=== PATIENT | female | born 1955 | race Caucasian/White ===

== ENCOUNTER 2017-11-09 13:21 | Emergency (ER) | payer MEDICAID ==
[2017-11-09] MEDS ORDERED: Sodium Chloride 0.9% 1,000 ML IV ONE (13:29)
[2017-11-09] MEDS ORDERED: Sodium Chloride 0.9% 10 ML Syringe FLUSH PRN (13:29)
[2017-11-09] MEDS ORDERED: Sodium Chloride 0.9% 2.5 ML Syringe FLUSH PRN (13:29)
--- NOTE | 2017-11-09 13:29 | EDM.PDOC ---
ED HPI GENERAL MEDICAL PROBLEM - General Chief Complaint: Syncope Stated Complaint: DIZZY Time Seen by Provider: 11/09/17 13:23 Source of Information: Reports: Patient History Limitations: Reports: No Limitations - History of Present Illness INITIAL COMMENTS - FREE TEXT/NARRATIVE: History of present illness: []Patient had a first episode of dizziness this morning. Patient tried to stand up and stated that she could not because everything was spinning and if she had been standing she would have fell down. Patient denies any recent illnesses, nausea, vomiting, headache, blurry vision, syncope. She had some numbness and tingling in 2 fingertips on her right hand. Review of systems: As per history of present illness and below otherwise all systems reviewed and negative. Past medical history: As per history of present illness and as reviewed below otherwise noncontributory. Surgical history: As per history of present illness and as reviewed below otherwise noncontributory. Social history: No reported history of drug or alcohol abuse. Family history: As per history of present illness and as reviewed below otherwise noncontributory. Physical exam: General: Well developed, well nourished in NAD HEENT: Atraumatic, normocephalic, pupils reactive, negative for conjunctival pallor or scleral icterus, mucous membranes moist, throat clear, neck supple, nontender, trachea midline. Lungs: Clear to auscultation, breath sounds equal bilaterally, chest nontender. Heart: S1S2, regular, negative for clicks, rubs, or JVD. Abdomen: Soft, nondistended, nontender. Negative for masses or hepatosplenomegaly. Negative for costovertebral tenderness. Pelvis: Stable nontender. Genitourinary: Deferred. Rectal: Deferred. Extremities: Atraumatic, negative for cords or calf pain. Neurovascular unremarkable. Neuro: Awake, alert, oriented. Cranial nerves II through XII unremarkable. Cerebellum unremarkable. Motor and sensory unremarkable throughout. Exam nonfocal. Diagnostics: []Labs all negative Therapeutics: []Dehydration and Meclizine with alleviation of symptoms Impression: []Benign positional vertigo Plan: []Meclizine every 8 hours as needed increase fluids follow-up with PMD return if symptoms worsen or change Definitive disposition and diagnosis as appropriate pending reevaluation and review of above. - Related Data Allergies Allergy/AdvReac Type Severity Reaction Status Date / Time No Known Allergies Allergy Verified 04/23/16 11:19 Home Meds: Home Meds DULoxetine HCl [Cymbalta] 1 tab PO DAILY 04/23/16 [History] Gabapentin [Neurontin] 1 tab PO BID 04/23/16 [History] amLODIPine [Norvasc] 1 tab PO DAILY 04/23/16 [History] atorvaSTATin [Lipitor] 20 mg PO BEDTIME 04/23/16 [History] Lurasidone HCl [Latuda] 1 tab PO DAILY 11/09/17 [History] Meclizine [Antivert] 25 mg PO TID PRN #12 tab.chew 11/09/17 [Rx] buPROPion [Wellbutrin] 1 tab PO DAILY 11/09/17 [History] cloNIDine HCl [Catapres] 1 tab PO DAILY 11/09/17 [History] Past Medical History Cardiovascular History: Reports: High Cholesterol, Hypertension Musculoskeletal History: Reports: Arthritis Psychiatric History: Reports: Bipolar - Past Surgical History Female Surgical History: Reports: Tubal Ligation Social & Family History - Family History Family Medical History: Noncontributory - Tobacco Use Smoking Status *Q: Current Every Day Smoker Years of Tobacco use: 20 Packs/Tins Daily: 0.5 - Recreational Drug Use Recreational Drug Use: No ED ROS GENERAL - Review of Systems Review Of Systems: See Below (See history of present illness) ED EXAM, DIZZINESS - Physical Exam Exam: See Below (See history of present illness) Course - Vital Signs Last Recorded V/S: Last Vital Signs Temp 97.8 F 11/09/17 15:02 Pulse 79 11/09/17 15:02 Resp 24 H 11/09/17 15:02 BP 151/67 H 11/09/17 15:02 Pulse Ox 97 11/09/17 15:02 - Orders/Labs/Meds Orders: Active Orders 24 hr Category Date Time Status EKG Documentation Completion [RC] STAT Care 11/09/17 13:29 Active Sodium Chloride 0.9% [Saline Flush] Med 11/09/17 13:29 Active 10 ml FLUSH ASDIRECTED PRN Sodium Chloride 0.9% [Saline Flush] Med 11/09/17 13:29 Active 2.5 ml FLUSH ASDIRECTED PRN Saline Lock Insert [OM.PC] Stat Oth 11/09/17 13:29 Ordered Medication Orders Sodium Chloride (Saline Flush) 10 ml FLUSH ASDIRECTED PRN PRN Reason: Keep Vein Open Last Admin: 11/09/17 14:00 Dose: 10 ml Sodium Chloride (Saline Flush) 2.5 ml FLUSH ASDIRECTED PRN PRN Reason: Keep Vein Open Last Admin: 11/09/17 14:01 Dose: 2.5 ml Labs: Laboratory Tests 11/09/17 11/09/17 11/09/17 Range/Units 13:40 13:40 13:42 WBC 7.12 (4.0-11.0) K/uL RBC 5.45 (4.30-5.90) M/uL Hgb 16.3 H (12.0-16.0) g/dL Hct 48.4 H (36.0-46.0) % MCV 88.8 (80.0-98.0) fL MCH 29.9 (27.0-32.0) pg MCHC 33.7 (31.0-37.0) g/dL RDW Std Deviation 44.1 (28.0-62.0) fl RDW Coeff of Richard 14 (11.0-15.0) % Plt Count 232 (150-400) K/uL MPV 9.90 (7.40-12.00) fL Neut % (Auto) 57.5 (48.0-80.0) % Lymph % (Auto) 30.6 (16.0-40.0) % [place] % (Auto) 10.0 (0.0-15.0) % Eos % (Auto) 1.3 (0.0-7.0) % Baso % (Auto) 0.6 (0.0-1.5) % Neut # (Auto) 4.1 (1.4-5.7) K/uL Lymph # (Auto) 2.2 (0.6-2.4) K/uL [place] # (Auto) 0.7 (0.0-0.8) K/uL Eos # (Auto) 0.1 (0.0-0.7) K/uL Baso # (Auto) 0.0 (0.0-0.1) K/uL Nucleated RBC % 0.0 /100WBC Nucleated RBCs # 0 K/uL Sodium (136-146) mmol/L Potassium (3.5-5.1) mmol/L Chloride (98-110) mmol/L Carbon Dioxide (21-31) mmol/L BUN (6.0-23.0) mg/dL Creatinine (0.6-1.5) mg/dL Est Cr Clr Drug Dosing mL/min Estimated GFR (MDRD) ml/min Glucose (60-110) mg/dL Calcium (8.8-10.8) mg/dL Total Bilirubin (0.1-1.5) mg/dL AST (5-40) IU/L ALT (8-54) IU/L Alkaline Phosphatase (40-150) Troponin I (0.0-0.29) NG/ML Total Protein (6.0-8.0) g/dL Albumin (3.5-5.0) g/dL Globulin (2.0-3.5) g/dL Albumin/Globulin Ratio (1.3-2.8) Urine Color YELLOW Urine Appearance CLEAR Urine pH 6.0 (5.0-8.0) Ur Specific [place] 1.020 (1.001-1.035) Urine Protein NEGATIVE (NEGATIVE) mg/dL Urine Glucose (UA) NEGATIVE (NEGATIVE) mg/dL Urine Ketones NEGATIVE (NEGATIVE) mg/dL Urine Occult Blood MODERATE (NEGATIVE) Urine Nitrite NEGATIVE (NEGATIVE) Urine Bilirubin SMALL H (NEGATIVE) Urine Ictotest NEGATIVE Urine Urobilinogen 0.2 (<2.0) EU/dL Ur Leukocyte Esterase SMALL (NEGATIVE) Urine RBC 8-10 (0-2/HPF) Urine WBC 4-6 (0-5/HPF) Ur Epithelial Cells MODERATE (NONE-FEW) Urine Bacteria 1+ H (NEGATIVE) Urine Mucus LIGHT (NONE-MOD) Urine Yeast MODERATE Urine Opiates Screen NEGATIVE (NEGATIVE) Ur Oxycodone Screen NEGATIVE (NEGATIVE) Urine Methadone Screen NEGATIVE (NEGATIVE) Ur Barbiturates Screen NEGATIVE (NEGATIVE) Ur Phencyclidine Scrn NEGATIVE (NEGATIVE) Ur Amphetamine Screen NEGATIVE (NEGATIVE) U Methamphetamines Scrn NEGATIVE (NEGATIVE) U Benzodiazepines Scrn NEGATIVE (NEGATIVE) U Cocaine Metab Screen NEGATIVE (NEGATIVE) U Marijuana (THC) Screen NEGATIVE (NEGATIVE) Ethyl Alcohol mg/dL 11/09/17 Range/Units 13:42 WBC (4.0-11.0) K/uL RBC (4.30-5.90) M/uL Hgb (12.0-16.0) g/dL Hct (36.0-46.0) % MCV (80.0-98.0) fL MCH (27.0-32.0) pg MCHC (31.0-37.0) g/dL RDW Std Deviation (28.0-62.0) fl RDW Coeff of Richard (11.0-15.0) % Plt Count (150-400) K/uL MPV (7.40-12.00) fL Neut % (Auto) (48.0-80.0) % Lymph % (Auto) (16.0-40.0) % [place] % (Auto) (0.0-15.0) % Eos % (Auto) (0.0-7.0) % Baso % (Auto) (0.0-1.5) % Neut # (Auto) (1.4-5.7) K/uL Lymph # (Auto) (0.6-2.4) K/uL [place] # (Auto) (0.0-0.8) K/uL Eos # (Auto) (0.0-0.7) K/uL Baso # (Auto) (0.0-0.1) K/uL Nucleated RBC % /100WBC Nucleated RBCs # K/uL Sodium 140 (136-146) mmol/L Potassium 4.0 (3.5-5.1) mmol/L Chloride 106 (98-110) mmol/L Carbon Dioxide 25 (21-31) mmol/L BUN 12 (6.0-23.0) mg/dL Creatinine 0.9 (0.6-1.5) mg/dL Est Cr Clr Drug Dosing 70.34 mL/min Estimated GFR (MDRD) > 60.0 ml/min Glucose 126 H (60-110) mg/dL Calcium 9.1 (8.8-10.8) mg/dL Total Bilirubin 0.7 (0.1-1.5) mg/dL AST 16 (5-40) IU/L ALT 15 (8-54) IU/L Alkaline Phosphatase 90 (40-150) Troponin I < 0.10 (0.0-0.29) NG/ML Total Protein 7.5 (6.0-8.0) g/dL Albumin 4.0 (3.5-5.0) g/dL Globulin 3.5 (2.0-3.5) g/dL Albumin/Globulin Ratio 1.1 L (1.3-2.8) Urine Color Urine Appearance Urine pH (5.0-8.0) Ur Specific [place] (1.001-1.035) Urine Protein (NEGATIVE) mg/dL Urine Glucose (UA) (NEGATIVE) mg/dL Urine Ketones (NEGATIVE) mg/dL Urine Occult Blood (NEGATIVE) Urine Nitrite (NEGATIVE) Urine Bilirubin (NEGATIVE) Urine Ictotest Urine Urobilinogen (<2.0) EU/dL Ur Leukocyte Esterase (NEGATIVE) Urine RBC (0-2/HPF) Urine WBC (0-5/HPF) Ur Epithelial Cells (NONE-FEW) Urine Bacteria (NEGATIVE) Urine Mucus (NONE-MOD) Urine Yeast Urine Opiates Screen (NEGATIVE) Ur Oxycodone Screen (NEGATIVE) Urine Methadone Screen (NEGATIVE) Ur Barbiturates Screen (NEGATIVE) Ur Phencyclidine Scrn (NEGATIVE) Ur Amphetamine Screen (NEGATIVE) U Methamphetamines Scrn (NEGATIVE) U Benzodiazepines Scrn (NEGATIVE) U Cocaine Metab Screen (NEGATIVE) U Marijuana (THC) Screen (NEGATIVE) Ethyl Alcohol < 10.0 mg/dL Meds: Medications Generic Name Dose Route Start Last Admin Trade Name Freq PRN Reason Stop Dose Admin Sodium Chloride 10 ml 11/09/17 13:29 11/09/17 14:00 Saline Flush FLUSH 10 ml ASDIRECTED PRN Administration Keep Vein Open Sodium Chloride 2.5 ml 11/09/17 13:29 11/09/17 14:01 Saline Flush FLUSH 2.5 ml ASDIRECTED PRN Administration Keep Vein Open Discontinued Medications Generic Name Dose Route Start Last Admin Trade Name Freq PRN Reason Stop Dose Admin Sodium Chloride 1,000 mls @ 999 mls/hr 11/09/17 13:29 11/09/17 14:00 Normal Saline IV 11/09/17 14:29 999 mls/hr .Bolus ONE Administration Meclizine HCl 25 mg 11/09/17 13:30 11/09/17 13:59 Antivert PO 11/09/17 13:31 25 mg ONETIME ONE Administration Departure - Departure Time of Disposition: 14:44 Disposition: Home, Self-Care 01 Condition: Good Clinical Impression: Benign positional vertigo Qualifiers: Laterality: unspecified laterality Qualified Code(s): H81.10 - Benign paroxysmal vertigo, unspecified ear - Discharge Information Prescriptions: Meclizine [Antivert] 25 mg PO TID PRN #12 tab.chew PRN Reason: Dizziness Instructions: Vertigo, [id number] Referrals: PCP,None [Primary Care Provider] - Forms: ED Department Discharge Additional Instructions: The following information is given to patients seen in the emergency department who are being discharged to home. This information is to outline your options for follow-up care. We provide all patients seen in our emergency department with a follow-up referral. The need for follow-up, as well as the timing and circumstances, are variable depending upon the specifics of your emergency department visit. If you don't have a primary care physician on staff, we will provide you with a referral. We always advise you to contact your personal physician following an emergency department visit to inform them of the circumstance of the visit and for follow-up with them and/or the need for any referrals to a consulting specialist. The emergency department will also refer you to a specialist when appropriate. This referral assures that you have the opportunity for follow-up care with a specialist. All of these measure are taken in an effort to provide you with optimal care, which includes your follow-up. Under all circumstances we always encourage you to contact your private physician who remains a resource for coordinating your care. When calling for follow-up care, please make the office aware that this follow-up is from your recent emergency room visit. If for any reason you are refused follow-up, please contact the [facility] Emergency Department at and asked to speak to the emergency department charge nurse. Meclizine every 8 hours for dizziness increase fluids follow-up with PMD as needed [facility] [address] [place] [id number] - My Orders Last 24 Hours: My Active Orders 11/09/17 13:29 EKG Documentation Completion [RC] STAT Sodium Chloride 0.9% [Saline Flush] 10 ml FLUSH ASDIRECTED PRN Sodium Chloride 0.9% [Saline Flush] 2.5 ml FLUSH ASDIRECTED PRN Saline Lock Insert [OM.PC] Stat - Assessment/Plan Last 24 Hours: My Active Orders 11/09/17 13:29 EKG Documentation Completion [RC] STAT Sodium Chloride 0.9% [Saline Flush] 10 ml FLUSH ASDIRECTED PRN Sodium Chloride 0.9% [Saline Flush] 2.5 ml FLUSH ASDIRECTED PRN Saline Lock Insert [OM.PC] Stat
[2017-11-09] MEDS ORDERED: Meclizine 25 MG Tab PO ONE (13:30)
[2017-11-09 14:26] LABS: CHLORIDE,CL 106 mmol/L (98-110); SODIUM,NA 140 mmol/L (136-146)
[2017-11-09 15:02] VITALS: BP 151/67
== END 2017-11-09 15:07 | disposition home or self-care (01) ==
LOC: MW.ED 13:21
DX: H81.10 Benign paroxysmal vertigo, unspecified ear (principal); E78.00 Pure hypercholesterolemia, unspecified; I10 Essential (primary) hypertension; F17.210 Nicotine dependence, cigarettes, uncomplicated; Z79.899 Other long term (current) drug therapy
CPT/HCPCS: 36415; 80053; 80305; 81001; 84484; 85025; 93005; 96360; 99284; A9270; G0480; J7040; 99283

== ENCOUNTER 2017-12-18 16:19 | Inpatient (IN) | payer MEDICAID ==
[2017-12-18] MEDS ORDERED: Ondansetron 4 MG/2 ML SDV IVPUSH ONE (16:22)
[2017-12-18] MEDS ORDERED: Sodium Chloride 0.9% 1,000 ML IV ONE (16:22)
[2017-12-18] MEDS ORDERED: Ketorolac 30 MG/ML SDV IVPUSH ONE (16:22)
[2017-12-18] MEDS ORDERED: Famotidine 20 MG/2 ML SDV IVPUSH ONE (16:23)
--- NOTE | 2017-12-18 16:30 | EDM.PDOC ---
ED HPI GENERAL MEDICAL PROBLEM - General Stated Complaint: UNKNOWN Time Seen by Provider: 12/18/17 16:21 Source of Information: Reports: Patient History Limitations: Reports: No Limitations - History of Present Illness INITIAL COMMENTS - FREE TEXT/NARRATIVE: HISTORY AND PHYSICAL: History of present illness: Patient is a 61-year-old female who presents to the emergency room today with complaints of epigastric pain that has been going on for 2-3 days. She states that she has been nauseated but has had no vomiting or diarrhea/constipation. She denies any dysuria. Patient states that nothing improves the pain or makes it worse. Not affected by fluid or food consumption. Had a menstrual period in 4-5 years. History of hypertension, elevated cholesterol, bipolar disorder. Review of systems: As per history of present illness and below otherwise all systems reviewed and negative. Past medical history: As per history of present illness and as reviewed below otherwise noncontributory. Surgical history: As per history of present illness and as reviewed below otherwise noncontributory. Social history: No reported history of drug or alcohol abuse. Family history: As per history of present illness and as reviewed below otherwise noncontributory. Physical exam: Gen.: Well-developed and well-nourished 61-year-old -[place] female. Alert and oriented. Nontoxic appearing and in no acute distress. HEENT: Atraumatic, normocephalic, pupils reactive, negative for conjunctival pallor or scleral icterus, mucous membranes moist, throat clear, neck supple, nontender, trachea midline. Patient is grinding her teeth which she reports is a normal variant. Lungs: Clear to auscultation, breath sounds equal bilaterally, chest nontender. Heart: S1S2, regular rate and rhythm without overt murmur Abdomen: Soft, nondistended, left upper quadrant and right upper quadrant tenderness with deep palpation. Negative for masses or hepatosplenomegaly. Negative for costovertebral tenderness. Pelvis: Stable nontender. Genitourinary: Deferred. Rectal: Deferred. Extremities: Atraumatic, moves all extremities per self without difficulty or deficits, negative for cords or calf pain. Neurovascular unremarkable. Neuro: Awake, alert, oriented. Cranial nerves II through XII unremarkable. Cerebellum unremarkable. Motor and sensory unremarkable throughout. Exam nonfocal. Lab work was done for abdominal pain: her AST (931), ALT (576) and phosphate ( 202) are elevated. A CT of the abdomen and pelvis has been ordered. CT shows cholelithiasis with pericholecystic fluid, suggesting a sonogram for cholecystitis. Patient is aware of these results. She is currently in manageable pain and does not want any additional pain medication at this time. Dr. Gomez and Dr. Dunlap was consulted on this case. Agreeable to keep the patient as inpatient. Diagnostics: CBC, CMP, amylase, lipase, troponin, UA, EKG, chest x-ray CT abdomen and pelvis with contrast Therapeutics: IV fluid, Pepcid, Toradol, Zofran, morphine Impression: #1 epigastric pain #2 cholelithiasis Plan: Inpatient admission to [facility]. Definitive disposition and diagnosis as appropriate pending reevaluation and review of above. Duration: Day(s): Location: Reports: Abdomen Quality: Reports: Burning, Sharp Severity: Moderate Improves with: Reports: None Worsens with: Reports: None Associated Symptoms: Reports: Nausea/Vomiting. Denies: Confusion, Chest Pain, Cough, cough w sputum, Diaphoresis, Fever/Chills, Headaches, Loss of Appetite, Malaise, Rash, Seizure, Shortness of Breath, Syncope, Weakness abdominal Pain Score (Numeric/FACES): 6 - Related Data Allergies Allergy/AdvReac Type Severity Reaction Status Date / Time Dust Allergy Mild nasal Uncoded 12/18/17 21:08 congestion, sneezing Pollen Allergy Mild Nasal Uncoded 12/18/17 21:08 congestion Home Meds: Home Meds DULoxetine HCl [Cymbalta] 1 tab PO DAILY 04/23/16 [History] Gabapentin [Neurontin] 1 tab PO BID 04/23/16 [History] amLODIPine [Norvasc] 1 tab PO DAILY 04/23/16 [History] atorvaSTATin [Lipitor] 20 mg PO BEDTIME 04/23/16 [History] Lurasidone HCl [Latuda] 1 tab PO DAILY 11/09/17 [History] Meclizine [Antivert] 25 mg PO TID PRN #12 tab.chew 11/09/17 [Rx] buPROPion [Wellbutrin] 1 tab PO DAILY 11/09/17 [History] cloNIDine HCl [Catapres] 1 tab PO DAILY 11/09/17 [History] Ciprofloxacin in D5W [Ciprofloxacin-D5W] 400 mg IV Q12H bag 12/19/17 [Rx] Morphine 2 mg IVPUSH Q2H PRN syringe 12/19/17 [Rx] Ondansetron [Zofran] 4 mg IVPUSH Q4H PRN vial 12/19/17 [Rx] Sodium Chloride 0.9% [Normal Saline] 150 ml IV ASDIRECTED bag 12/19/17 [Rx] metroNIDAZOLE/Normal Saline [Flagyl 500 MG in NS 100 ML] 500 mg IV Q6H bag [Rx] Past Medical History Cardiovascular History: Reports: High Cholesterol, Hypertension Musculoskeletal History: Reports: Arthritis Psychiatric History: Reports: Bipolar - Past Surgical History Female Surgical History: Reports: Tubal Ligation Social & Family History - Family History Family Medical History: Noncontributory - Tobacco Use Smoking Status *Q: Current Every Day Smoker Years of Tobacco use: 20 Packs/Tins Daily: 0.5 - Caffeine Use Caffeine Use: Reports: None - Recreational Drug Use Recreational Drug Use: No ED ROS GENERAL - Review of Systems Review Of Systems: ROS reveals no pertinent complaints other than HPI. ED EXAM, GENERAL - Physical Exam Exam: See Below (See dictation) Course - Vital Signs Last Recorded V/S: Last Vital Signs Temp 97.7 F 12/19/17 08:12 Pulse 85 12/19/17 08:12 Resp 18 12/19/17 08:12 BP 135/90 12/19/17 08:47 Pulse Ox 92 L 12/19/17 08:12 - Orders/Labs/Meds Labs: Laboratory Tests 12/18/17 12/18/17 12/18/17 Range/Units 16:28 16:28 16:28 WBC 10.34 (4.0-11.0) K/uL RBC 5.12 (4.30-5.90) M/uL Hgb 15.4 (12.0-16.0) g/dL Hct 45.2 (36.0-46.0) % MCV 88.3 (80.0-98.0) fL MCH 30.1 (27.0-32.0) pg MCHC 34.1 (31.0-37.0) g/dL RDW Std Deviation 42.9 (28.0-62.0) fl RDW Coeff of Richard 13 (11.0-15.0) % Plt Count 226 (150-400) K/uL MPV 9.40 (7.40-12.00) fL Neut % (Auto) 79.6 (48.0-80.0) % Lymph % (Auto) 10.9 L (16.0-40.0) % [place] % (Auto) 9.0 (0.0-15.0) % Eos % (Auto) 0.4 (0.0-7.0) % Baso % (Auto) 0.1 (0.0-1.5) % Neut # (Auto) 8.2 H (1.4-5.7) K/uL Lymph # (Auto) 1.1 (0.6-2.4) K/uL [place] # (Auto) 0.9 H (0.0-0.8) K/uL Eos # (Auto) 0.0 (0.0-0.7) K/uL Baso # (Auto) 0.0 (0.0-0.1) K/uL Nucleated RBC % 0.0 /100WBC Nucleated RBCs # 0 K/uL Sodium 142 (136-146) mmol/L Potassium 3.9 (3.5-5.1) mmol/L Chloride 106 (98-110) mmol/L Carbon Dioxide 26 (21-31) mmol/L BUN 11 (6.0-23.0) mg/dL Creatinine 0.8 (0.6-1.5) mg/dL Est Cr Clr Drug Dosing TNP Estimated GFR (MDRD) > 60.0 ml/min Glucose 117 H (60-110) mg/dL Calcium 9.2 (8.8-10.8) mg/dL Total Bilirubin 1.5 (0.1-1.5) mg/dL AST 931 H (5-40) IU/L ALT 576 H (8-54) IU/L Alkaline Phosphatase 202 H (40-150) Troponin I < 0.10 (0.0-0.29) NG/ML Total Protein 7.3 (6.0-8.0) g/dL Albumin 4.1 (3.5-5.0) g/dL Globulin 3.2 (2.0-3.5) g/dL Albumin/Globulin Ratio 1.3 (1.3-2.8) Amylase 39 (10-90) U/L Lipase 19 (7-80) U/L Urine Color Urine Appearance Urine pH (5.0-8.0) Ur Specific [place] (1.001-1.035) Urine Protein (NEGATIVE) mg/dL Urine Glucose (UA) (NEGATIVE) mg/dL Urine Ketones (NEGATIVE) mg/dL Urine Occult Blood (NEGATIVE) Urine Nitrite (NEGATIVE) Urine Bilirubin (NEGATIVE) Urine Urobilinogen (<2.0) EU/dL Ur Leukocyte Esterase (NEGATIVE) Urine RBC (0-2/HPF) Urine WBC (0-5/HPF) Ur Epithelial Cells (NONE-FEW) Urine Bacteria (NEGATIVE) H. pylori IgG Antibody NEGATIVE (NEG) 12/18/17 Range/Units 18:41 WBC (4.0-11.0) K/uL RBC (4.30-5.90) M/uL Hgb (12.0-16.0) g/dL Hct (36.0-46.0) % MCV (80.0-98.0) fL MCH (27.0-32.0) pg MCHC (31.0-37.0) g/dL RDW Std Deviation (28.0-62.0) fl RDW Coeff of Richard (11.0-15.0) % Plt Count (150-400) K/uL MPV (7.40-12.00) fL Neut % (Auto) (48.0-80.0) % Lymph % (Auto) (16.0-40.0) % [place] % (Auto) (0.0-15.0) % Eos % (Auto) (0.0-7.0) % Baso % (Auto) (0.0-1.5) % Neut # (Auto) (1.4-5.7) K/uL Lymph # (Auto) (0.6-2.4) K/uL [place] # (Auto) (0.0-0.8) K/uL Eos # (Auto) (0.0-0.7) K/uL Baso # (Auto) (0.0-0.1) K/uL Nucleated RBC % /100WBC Nucleated RBCs # K/uL Sodium (136-146) mmol/L Potassium (3.5-5.1) mmol/L Chloride (98-110) mmol/L Carbon Dioxide (21-31) mmol/L BUN (6.0-23.0) mg/dL Creatinine (0.6-1.5) mg/dL Est Cr Clr Drug Dosing Estimated GFR (MDRD) ml/min Glucose (60-110) mg/dL Calcium (8.8-10.8) mg/dL Total Bilirubin (0.1-1.5) mg/dL AST (5-40) IU/L ALT (8-54) IU/L Alkaline Phosphatase (40-150) Troponin I (0.0-0.29) NG/ML Total Protein (6.0-8.0) g/dL Albumin (3.5-5.0) g/dL Globulin (2.0-3.5) g/dL Albumin/Globulin Ratio (1.3-2.8) Amylase (10-90) U/L Lipase (7-80) U/L Urine Color YELLOW Urine Appearance SLT CLOUDY Urine pH 7.0 (5.0-8.0) Ur Specific [place] 1.015 (1.001-1.035) Urine Protein NEGATIVE (NEGATIVE) mg/dL Urine Glucose (UA) NEGATIVE (NEGATIVE) mg/dL Urine Ketones NEGATIVE (NEGATIVE) mg/dL Urine Occult Blood TRACE-INTACT (NEGATIVE) Urine Nitrite NEGATIVE (NEGATIVE) Urine Bilirubin NEGATIVE (NEGATIVE) Urine Urobilinogen 0.2 (<2.0) EU/dL Ur Leukocyte Esterase SMALL (NEGATIVE) Urine RBC 3-6 (0-2/HPF) Urine WBC 8-10 (0-5/HPF) Ur Epithelial Cells MODERATE (NONE-FEW) Urine Bacteria FEW (NEGATIVE) H. pylori IgG Antibody (NEG) Meds: Medications Discontinued Medications Generic Name Dose Route Start Last Admin Trade Name Freq PRN Reason Stop Dose Admin Amlodipine Besylate 5 mg 12/19/17 09:00 12/19/17 08:47 Norvasc PO Not Given DAILY [facility] Atorvastatin Calcium 20 mg 12/19/17 21:00 Lipitor PO BEDTIME [facility] Bupropion HCl 100 mg 12/19/17 09:00 12/19/17 08:47 Wellbutrin PO Not Given DAILY [facility] Clonidine HCl 0.1 mg 12/19/17 09:00 12/19/17 08:47 Catapres PO Not Given DAILY [facility] Duloxetine HCl 60 mg 12/19/17 09:00 12/19/17 08:47 Cymbalta PO Not Given DAILY [facility] Famotidine 20 mg 12/18/17 16:23 12/18/17 16:36 Pepcid IVPUSH 12/18/17 16:24 20 mg ONETIME ONE Administration Gabapentin 300 mg 12/19/17 09:00 12/19/17 08:47 Neurontin PO Not Given BID [facility] Sodium Chloride 1,000 mls @ 999 mls/hr 12/18/17 16:22 12/18/17 16:36 Normal Saline IV 12/18/17 17:22 999 mls/hr STAT ONE Administration Ciprofloxacin/Dextrose 400 mg/ 200 mls @ 200 mls/hr 12/18/17 19:45 12/18/17 19:57 Premix IV 200 mls/hr Q12H [facility] Administration Metronidazole 500 mg/ Premix 100 mls @ 100 mls/hr 12/18/17 19:41 12/18/17 19: 56 IV 12/18/17 20:40 100 mls/hr ONETIME ONE Administration Sodium Chloride 1,000 mls @ 150 mls/hr 12/18/17 22:00 12/19/17 06:22 Normal Saline IV 150 mls/hr ASDIRECTED [facility] Administration Ciprofloxacin/Dextrose 400 mg/ 200 mls @ 200 mls/hr 12/19/17 08:00 12/19/17 07:48 Premix IV 200 mls/hr Q12H [facility] Administration Metronidazole 500 mg/ Premix 100 mls @ 100 mls/hr 12/19/17 02:00 12/19/17 08: 44 IV 100 mls/hr Q6H [facility] Administration Iopamidol 89 ml 12/18/17 17:57 12/18/17 17:58 Isovue Multipack-370 (76%) IVPUSH 12/18/17 17:58 89 ml ONETIME ONE Administration Ketorolac Tromethamine 30 mg 12/18/17 16:22 12/18/17 16:36 Toradol IVPUSH 12/18/17 16:23 30 mg ONETIME ONE Administration Morphine Sulfate 4 mg 12/18/17 17:58 12/18/17 18:08 Morphine IVPUSH 12/18/17 17:59 4 mg ONETIME ONE Administration Morphine Sulfate 2 mg 12/18/17 21:49 Morphine IVPUSH 12/19/17 21:53 Q2H PRN Pain (severe 7-10) Ondansetron HCl 4 mg 12/18/17 16:22 12/18/17 16:36 Zofran IVPUSH 12/18/17 16:23 4 mg ONETIME ONE Administration Ondansetron HCl 4 mg 12/18/17 21:49 Zofran IVPUSH Q4H PRN Nausea Oxycodone HCl 5 mg 12/18/17 21:49 Oxycodone PO Q4H PRN Pain (moderate 4-6) Lurasidone Hcl [ 1 each 12/19/17 09:00 12/19/17 08:47 Latuda] 1 Tab PO Not Given DAILY [facility] Temazepam 15 mg 12/18/17 21:49 Restoril PO BEDTIME PRN Sleep Departure - Departure Time of Disposition: 21:00 Disposition: Admitted As Inpatient 68 Clinical Impression: Elevated LFTs Cholelithiasis Qualifiers: Cholelithiasis location: gallbladder Cholecystitis presence: without cholecystitis - Discharge Information
[2017-12-18 16:57] LABS: CHLORIDE,CL 106 mmol/L (98-110); SODIUM,NA 142 mmol/L (136-146)
[2017-12-18] MEDS ORDERED: Iopamidol 755 MG/ML 200 ML Multipack Bottle IVPUSH ONE (17:57)
[2017-12-18] MEDS ORDERED: Morphine 4 MG/ML Syringe IVPUSH ONE (17:58)
[2017-12-18] MEDS ORDERED: metroNIDAZOLE/Normal Saline 500 MG in Premix Bag 1 BAG IV ONE (19:41)
[2017-12-18] MEDS ORDERED: Ciprofloxacin in D5W 400 MG in Premix Bag 1 BAG IV SCH ×2 (19:45)
--- NOTE | 2017-12-18 19:45 | PCM.HP ---
H&P History of Present Illness - General Date of Service: 12/18/17 Admit Problem/Dx: Admission Diagnosis/Problem Admission Diagnosis/Problem Cholelithiasis - History of Present Illness Initial Comments - Free Text/Narative: 61-year-old female presenting to the emergency department with chief complaint of right upper quadrant pain 2 days with past medical history of hypertension and bipolar disorder. Patient states that for the past 2 days she has had right upper quadrant pain that has progressively gotten worse. She also reports associated nausea without vomiting, fevers and chills. Secondary to increasing pain she called for an ambulance to be seen at the emergency department for further evaluation. She denies any diarrhea, constipation, dysuria, chest pain, palpitations, shortness of breath, syncopal episodes, or focal neurologic deficits. Patient had similar episode a couple weeks ago after she ate spaghetti with hamburger. This episode lasted for approximate 5-6 hours and once again was in the right upper quadrant. The pain was relieved on its own. Patient has no medicinal allergies and reports no abdominal surgical history. In the emergency department patient was found to be afebrile with normal CBC. CMP revealed a total bilirubin within the normal range 1.5, elevated AST at 931 ALT at 576, and alkaline phosphatase 202. Amylase and lipase were within normal limits and Helicobacter pylori was negative. Urinalysis showed possible urinary tract infection but there was moderate epithelial cells. Chest x-ray was unremarkable. CT abdomen/pelvis: Cholelithiasis with pericholecystic fluid. Correlate with sonography for cholecystitis Central periportal edema, nonspecific. Hepatic cysts. Subcentimeter pancreatic low-density lesions, too small to characterize. Consider 12 month follow-up. A possible myomatous uterus Small soft tissue nodules in the bilateral breasts. Correlate with mammography. She was given famotidine 20, Toradol 30, morphine 4, Zofran 4, and started on ciprofloxacin and Flagyl. Patient was admitted for cholelithiasis suspicious for cholecystitis. abdominal Pain Score (Numeric/FACES): 0 - Related Data Allergies/Adverse Reactions: Allergies Allergy/AdvReac Type Severity Reaction Status Date / Time Dust Allergy Mild nasal Uncoded 12/18/17 21:08 congestion, sneezing Pollen Allergy Mild Nasal Uncoded 12/18/17 21:08 congestion Home Medications: Home Meds DULoxetine HCl [Cymbalta] 1 tab PO DAILY 05/23/16 [History] Gabapentin [Neurontin] 1 tab PO BID 04/23/16 [History] amLODIPine [Norvasc] 1 tab PO DAILY 04/23/16 [History] atorvaSTATin [Lipitor] 20 mg PO BEDTIME 04/23/16 [History] Lurasidone HCl [Latuda] 1 tab PO DAILY 11/09/17 [History] Meclizine [Antivert] 25 mg PO TID PRN #12 tab.chew 11/09/17 [Rx] buPROPion [Wellbutrin] 1 tab PO DAILY 11/09/17 [History] cloNIDine HCl [Catapres] 1 tab PO DAILY 11/09/17 [History] Past Medical History HEENT History: Reports: None Cardiovascular History: Reports: High Cholesterol, Hypertension Respiratory History: Reports: None Gastrointestinal History: Reports: None Genitourinary History: Reports: None [employer] History: Reports: None Musculoskeletal History: Reports: Arthritis Neurological History: Reports: None Psychiatric History: Reports: Bipolar Endocrine/Metabolic History: Reports: None Hematologic History: Reports: None Immunologic History: Reports: None Oncologic (Cancer) History: Reports: None Dermatologic History: Reports: None - Past Surgical History Female Surgical History: Reports: Tubal Ligation Social & Family History - Family History Family Medical History: Noncontributory - Tobacco Use Smoking Status *Q: Current Every Day Smoker Years of Tobacco use: 20 Packs/Tins Daily: 0.5 - Caffeine Use Caffeine Use: Reports: None - Recreational Drug Use Recreational Drug Use: No H&P Review of Systems - Review of Systems: Review Of Systems: See Below General: Reports: Fever, Chills. Denies: Weakness, Fatigue HEENT: Denies: Headaches, Sinus Congestion, Sore Throat Pulmonary: Denies: Shortness of Breath, Wheezing, Cough, Sputum, Hemoptysis Cardiovascular: Denies: Chest Pain, Palpitations, Edema Gastrointestinal: Reports: Abdominal Pain (RUQ), Nausea. Denies: Black Stool, Bloody Stool, Diarrhea, Vomiting Genitourinary: Denies: Dysuria, Hematuria Musculoskeletal: Denies: Neck Pain, Leg Pain Skin: Denies: Cyanosis Psychiatric: Denies: Confusion Exam - Exam Exam: See Below - Vital Signs Vital Signs: Last Vital Signs Temp 97.8 F 12/18/17 19:38 Pulse 82 12/18/17 19:38 Resp 18 12/18/17 19:38 BP 141/83 H 12/18/17 19:38 Pulse Ox 97 12/18/17 19:38 Weight: 72.575 kg - Exam Quality Assessment: DVT Prophylaxis General: Alert, Oriented, Cooperative HEENT: Conjunctiva Clear, EACs Clear, EOMI, Hearing Intact, Mucosa Moist & [place] , Nares Patent, Normal Nasal Septum, Posterior Pharynx Clear, PERRLA Neck: Supple, Trachea Midline, 2 Lungs: Clear to Auscultation, Normal Respiratory Effort Cardiovascular: Regular Rate, Regular Rhythm, Normal S1, Normal S2 GI/Abdominal Exam: Normal Bowel Sounds, Soft, No Organomegaly, No Distention, Tender. No: Guarding, Rigid, Rebound (RUQ) Back Exam: Normal Inspection, Full Range of Motion Extremities: Normal Inspection, Non-Tender, No Pedal Edema, Normal Capillary Refill Peripheral Pulses: 2+: Radial (L), Radial (R), Posterior Tibial (L), Posterior Tibial (R), Dorsalis Pedis (L), Dorsalis Pedis (R) Skin: Warm, Dry, Intact Neurological: Cranial Nerves Intact Neuro Extensive - Mental Status: Alert, Oriented x3, Normal Mood/Affect, Normal Cognition Neuro Extensive - Motor, Sensory, Reflexes: CN II-XII Intact Psychiatric: Alert, Normal Affect, Normal Mood - Patient Data Result Diagrams: 12/18/17 16:28 12/18/17 16:28 *Q Meaningful Use (ADM) - VTE *Q VTE Criteria *Q: - Stroke *Q Stroke Criteria *Q: - AMI *Q AMI Criteria *Q: - Problem List (1) Cholelithiasis with acute cholecystitis SNOMED Code(s): 93257709 ICD Code: K80.00 - CALCULUS OF GALLBLADDER W ACUTE CHOLECYST W/O OBSTRUCTION Status: Suspected Priority: High Current Visit: Yes Qualifiers: Cholelithiasis location: gallbladder (2) Hypertension SNOMED Code(s): 15521350 ICD Code: I10 - ESSENTIAL (PRIMARY) HYPERTENSION Status: Chronic Priority : Medium Current Visit: Yes Qualifiers: Hypertension type: unspecified Qualified Code(s): I10 - Essential (primary ) hypertension (3) UTI (urinary tract infection) SNOMED Code(s): 35534961 ICD Code: N39.0 - URINARY TRACT INFECTION, SITE NOT SPECIFIED Status: Suspected Priority: High Current Visit: Yes Qualifiers: Urinary tract infection type: acute cystitis Hematuria presence: without hematuria Qualified Code(s): N30.00 - Acute cystitis without hematuria (4) Bipolar disorder SNOMED Code(s): 60742553 ICD Code: F31.9 - BIPOLAR DISORDER, UNSPECIFIED Status: Chronic Priority : Low Current Visit: Yes Qualifiers: Active/Remission status: remission status unspecified Qualified Code(s): F31.9 - Bipolar disorder, unspecified Problem List Initiated/Reviewed/Updated: Yes Orders Last 24hrs: Active Orders 24 hr Category Date Time Status CULTURE BLOOD [BC] Stat Lab 12/18/17 19:28 Ordered CULTURE BLOOD [BC] Stat Lab 12/18/17 19:28 Ordered Ciprofloxacin in D5W [Cipro in D5W 400 MG/200 ML] 400 Med 12/18/17 19:45 Active mg Premix Bag 1 bag IV Q12H metroNIDAZOLE/Normal Saline [Flagyl 500 MG in NS 100 ML Med 12/18/17 19:41 Active ] 500 mg Premix Bag 1 bag IV ONETIME Blood Culture x2 Reflex Set [OM.PC] Stat Oth 12/18/17 19:28 Ordered Medication Orders Ciprofloxacin/Dextrose 400 mg/ (Premix) 200 mls @ 200 mls/hr IV Q12H [facility] Metronidazole 500 mg/ Premix 100 mls @ 100 mls/hr IV ONETIME ONE Stop: 12/18/17 20:40 Assessment/Plan Comment:: 61-year-old female admitted 12/18/17 for suspected cholelithiasis with acute cholecystitis and possible UTI with past medical history of hypertension and bipolar disorder. Cholelithiasis/cholecystitis: Patient will be placed nothing by mouth. Pain medications as needed. Cipro and Flagyl day 1 repeat labs in a.m. monitoring total bili, alkaline phosphatase, AST, and ALT. Dr. Bernal has been consult and plan is to possibly do a cholecystectomy tomorrow or MRCP pending labs. Possible UTI: Asymptomatic. Small leukocyte esterase with 8-10 K WBCs but moderate epithelial cells. Patient is covered with above Cipro and Flagyl. We' ll continue to monitor. Hypertension: Stable at this time we'll continue to monitor restart home medications. Bipolar disorder: Currently stable in remission continue home medications. VTE: SCD and ambulation. Plan for possible surgery in AM Dispo: 3-4 days pending.
[2017-12-18] MEDS ORDERED: oxyCODONE 5 MG Tab PO PRN (21:49)
[2017-12-18] MEDS ORDERED: Ondansetron 4 MG/2 ML SDV IVPUSH PRN (21:49)
[2017-12-18] MEDS ORDERED: Temazepam 15 MG Cap PO PRN (21:49)
[2017-12-18] MEDS ORDERED: Morphine 10 MG/ML Syringe IVPUSH PRN (21:49)
[2017-12-18] MEDS: Sodium Chloride 0.9% 1,000 ML IV SCH (23:00)
[2017-12-19] MEDS: metroNIDAZOLE/Normal Saline 500 MG in Premix Bag 1 BAG IV SCH ×2 (01:42→08:44)
[2017-12-19 05:56] LABS: CHLORIDE,CL 109 mmol/L (98-110); SODIUM,NA 139 mmol/L (136-146)
[2017-12-19] MEDS: Sodium Chloride 0.9% 1,000 ML IV SCH (06:22)
[2017-12-19] MEDS ORDERED: Ciprofloxacin in D5W 400 MG in Premix Bag 1 BAG IV SCH ×2 (08:00)
[2017-12-19 08:48] VITALS: BP 135/90
--- NOTE | 2017-12-19 08:49 | PCM.DCSUM1 ---
Discharge Summary - Hospital Course Brief History: 61-year-old female presenting to the emergency department with chief complaint of right upper quadrant pain 2 days with past medical history of hypertension and bipolar disorder. Patient states that for the past 2 days she has had right upper quadrant pain that has progressively gotten worse. She also reports associated nausea without vomiting, fevers and chills. Secondary to increasing pain she called for an ambulance to be seen at the emergency department for further evaluation. She denies any diarrhea, constipation, dysuria, chest pain, palpitations, shortness of breath, syncopal episodes, or focal neurologic deficits. Patient had similar episode a couple weeks ago after she ate spaghetti with hamburger. This episode lasted for approximate 5-6 hours and once again was in the right upper quadrant. The pain was relieved on its own. Patient has no medicinal allergies and reports no abdominal surgical history. In the emergency department patient was found to be afebrile with normal CBC. CMP revealed a total bilirubin within the normal range 1.5, elevated AST at 931 ALT at 576, and alkaline phosphatase 202. Amylase and lipase were within normal limits and Helicobacter pylori was negative. Urinalysis showed possible urinary tract infection but there was moderate epithelial cells. Chest x-ray was unremarkable. CT abdomen/pelvis: Cholelithiasis with pericholecystic fluid and gallbladder sludge within a moderately distended gallbladder. Central periportal edema, nonspecific. Hepatic cysts. Subcentimeter pancreatic low-density lesions, too small to characterize. Consider 12 month follow-up. A possible myomatous uterus Small soft tissue nodules in the bilateral breasts. Correlate with mammography. She was given famotidine 20, Toradol 30, morphine 4, Zofran 4, and started on ciprofloxacin and Flagyl. Patient was admitted for cholelithiasis suspicious for cholecystitis. - Discharge Data Discharge Date: 12/19/17 Discharge Disposition: DC/Tfer to Acute Hospital 02 Condition: Good - Patient Instructions Diet: NPO Activity: As Tolerated - Discharge Plan Home Medications: Home Meds DULoxetine HCl [Cymbalta] 1 tab PO DAILY 04/23/16 [History] Gabapentin [Neurontin] 1 tab PO BID 04/23/16 [History] amLODIPine [Norvasc] 1 tab PO DAILY 04/23/16 [History] atorvaSTATin [Lipitor] 20 mg PO BEDTIME 04/23/16 [History] Lurasidone HCl [Latuda] 1 tab PO DAILY 11/09/17 [History] Meclizine [Antivert] 25 mg PO TID PRN #12 tab.chew 11/09/17 [Rx] buPROPion [Wellbutrin] 1 tab PO DAILY 11/09/17 [History] cloNIDine HCl [Catapres] 1 tab PO DAILY 11/09/17 [History] Ciprofloxacin in D5W [Ciprofloxacin-D5W] 400 mg IV Q12H bag 12/19/17 [Rx] Morphine 2 mg IVPUSH Q2H PRN syringe 12/19/17 [Rx] Ondansetron [Zofran] 4 mg IVPUSH Q4H PRN vial 12/19/17 [Rx] Sodium Chloride 0.9% [Normal Saline] 150 ml IV ASDIRECTED bag 12/19/17 [Rx] metroNIDAZOLE/Normal Saline [Flagyl 500 MG in NS 100 ML] 500 mg IV Q6H bag [Rx] Referrals: PCP,None [Primary Care Provider] - - Discharge Summary/Plan Comment DC Time >30 min.: No Discharge Summary/Plan Comment: Discharge Plan: Cholelithiasis possible cholecystitis Elevated bilirubin Elevated AST/ALT Hx Bipolar Hx HTN Hx dyslipidemia Chaitanya was admitted and monitored overnight. Dr. Dunlap, general surgeon, consulted regarding possible cholecystitis with cholelithiasis. She was treated with Ciprofloxacin and Flagyl along with bowel rest and IVFs. This morning AST and ALT, nearly doubled as well as bilirubin elevating to 3.5. Renetta is having no worsening in pain. Dr. Dunalp notified of elevation of bilirubin and AST/ ALT. She recommends transfer to a facility capable of performing ERCP. I contact [facility] and spoke with ALEA Moore, NO provider available who performs ERCPs. [facility] was contacted and I spoke with ALEA Abebe, initially, who accepted patient for consult. I then spoke with Dr. Cole, Hospitalist, who accepted patient for transfer. Dr Lara request PT/INR to be added to labwork, which was done. Renetta agrees to transfer today and will be transferred via EMS to [place]. She has been NPO including medications since last evening. - General Info Date of Service: 12/19/17 Admission Dx/Problem (Free Text: Admission Diagnosis/Problem Admission Diagnosis/Problem Cholelithiasis Subjective Update: Sitting on edge bed, in no acute distress. Renetta denies abdominal pain at this time, but reports it hurts worse after eating. She denies chest pain or SOB. no other concerns. Notified of needing to be transferred and Renetta agrees with transfer at this time. Functional Status: Reports: Pain Controlled, Ambulating, Urinating - Review of Systems HEENT: Reports: No Symptoms. Denies: Headaches, Sore Throat, Rhinitis, Visual Changes Pulmonary: Reports: No Symptoms. Denies: Shortness of Breath Cardiovascular: Reports: No Symptoms. Denies: Chest Pain, Edema Gastrointestinal: Reports: Flatus. Denies: Abdominal Pain, Nausea, Vomiting Genitourinary: Reports: No Symptoms. Denies: Dysuria, Frequency, Burning Musculoskeletal: Reports: No Symptoms. Denies: Neck Pain, Shoulder Pain Neurological: Reports: No Symptoms. Denies: Confusion Psychiatric: Reports: No Symptoms. Denies: Confusion - Patient Data Vitals - Most Recent: Last Vital Signs Temp 97.7 F 12/19/17 08:12 Pulse 85 12/19/17 08:12 Resp 18 12/19/17 08:12 BP 135/90 12/19/17 08:47 Pulse Ox 92 L 12/19/17 08:12 Weight - Most Recent: 72.575 kg I&O - Last 24 hours: Intake & Output 12/18/17 12/19/17 12/19/17 22:59 06:59 14:59 Intake Total 300 580 Output Total 650 Balance 300 -70 Lab Results - Last 24 hrs: Laboratory Results - last 24 hr 12/19/17 12/19/17 Range/Units 04:56 04:56 WBC 4.97 (4.0-11.0) K/uL RBC 4.91 (4.30-5.90) M/uL Hgb 14.2 (12.0-16.0) g/dL Hct 43.0 (36.0-46.0) % MCV 87.6 (80.0-98.0) fL MCH 28.9 (27.0-32.0) pg MCHC 33.0 (31.0-37.0) g/dL RDW Std Deviation 42.3 (28.0-62.0) fl RDW Coeff of Richard 13 (11.0-15.0) % Plt Count 220 (150-400) K/uL MPV 9.90 (7.40-12.00) fL Add Manual Diff YES Neutrophils % (Manual) 44 L (48.0-80.0) % Band Neutrophils % 1 % Lymphocytes % (Manual) 37 (16.0-40.0) % Monocytes % (Manual) 12 (0.0-15.0) % Eosinophils % (Manual) 2 (0.0-7.0) % Basophils % (Manual) 4 H (0.0-1.5) % Nucleated RBC % 0.0 /100WBC Absolute Seg Neuts 2.2 (1.4-5.7) Band Neutrophils # 0 Lymphocytes # (Manual) 1.8 (0.6-2.4) Monocytes # (Manual) 0.6 (0.0-0.8) Eosinophils # (Manual) 0.1 (0.0-0.7) Basophils # (Manual) 0.2 H (0.0-0.1) Nucleated RBCs # 0 K/uL Sodium 139 (136-146) mmol/L Potassium 3.8 (3.5-5.1) mmol/L Chloride 109 (98-110) mmol/L Carbon Dioxide 21 (21-31) mmol/L BUN 5 L (6.0-23.0) mg/dL Creatinine 0.7 (0.6-1.5) mg/dL Est Cr Clr Drug Dosing 90.43 mL/min Estimated GFR (MDRD) > 60.0 ml/min Glucose 91 (60-110) mg/dL Calcium 8.2 L (8.8-10.8) mg/dL Magnesium 1.6 (1.5-2.3) mEq/L Total Bilirubin 3.5 H (0.1-1.5) mg/dL AST 1796 H (5-40) IU/L ALT 1450 H (8-54) IU/L Alkaline Phosphatase 278 H (40-150) Total Protein 6.1 (6.0-8.0) g/dL Albumin 3.8 (3.5-5.0) g/dL Globulin 2.3 (2.0-3.5) g/dL Albumin/Globulin Ratio 1.7 (1.3-2.8) Med Orders - Current: Current Medications Amlodipine Besylate (Norvasc) 5 mg PO DAILY [facility] Last Admin: 12/19/17 08:47 Dose: Not Given Atorvastatin Calcium (Lipitor) 20 mg PO BEDTIME [facility] Bupropion HCl (Wellbutrin) 100 mg PO DAILY [facility] Last Admin: 12/19/17 08:47 Dose: Not Given Clonidine HCl (Catapres) 0.1 mg PO DAILY [facility] Last Admin: 12/19/17 08:47 Dose: Not Given Duloxetine HCl (Cymbalta) 60 mg PO DAILY [facility] Last Admin: 12/19/17 08:47 Dose: Not Given Gabapentin (Neurontin) 300 mg PO BID [facility] Last Admin: 12/19/17 08:47 Dose: Not Given Sodium Chloride (Normal Saline) 1,000 mls @ 150 mls/hr IV ASDIRECTED [facility] Last Admin: 12/19/17 06:22 Dose: 150 mls/hr Ciprofloxacin/Dextrose 400 mg/ (Premix) 200 mls @ 200 mls/hr IV Q12H [facility] Last Admin: 12/19/17 07:48 Dose: 200 mls/hr Metronidazole 500 mg/ Premix 100 mls @ 100 mls/hr IV Q6H [facility] Last Admin: 12/19/17 08:44 Dose: 100 mls/hr Morphine Sulfate (Morphine) 2 mg IVPUSH Q2H PRN PRN Reason: Pain (severe 7-10) Stop: 12/19/17 21:53 Ondansetron HCl (Zofran) 4 mg IVPUSH Q4H PRN PRN Reason: Nausea Oxycodone HCl (Oxycodone) 5 mg PO Q4H PRN PRN Reason: Pain (moderate 4-6) Lurasidone Hcl [ (Latuda] 1 Tab) 1 each PO DAILY [facility] Last Admin: 12/19/17 08:47 Dose: Not Given Temazepam (Restoril) 15 mg PO BEDTIME PRN PRN Reason: Sleep Discontinued Medications Famotidine (Pepcid) 20 mg IVPUSH ONETIME ONE Stop: 12/18/17 16:24 Last Admin: 12/18/17 16:36 Dose: 20 mg Sodium Chloride (Normal Saline) 1,000 mls @ 999 mls/hr IV STAT ONE Stop: 12/18/17 17:22 Last Admin: 12/18/17 16:36 Dose: 999 mls/hr Ciprofloxacin/Dextrose 400 mg/ (Premix) 200 mls @ 200 mls/hr IV Q12H [facility] Last Admin: 12/18/17 19:57 Dose: 200 mls/hr Metronidazole 500 mg/ Premix 100 mls @ 100 mls/hr IV ONETIME ONE Stop: 12/18/17 20:40 Last Admin: 12/18/17 19:56 Dose: 100 mls/hr Iopamidol (Isovue Multipack-370 (76%)) 89 ml IVPUSH ONETIME ONE Stop: 12/18/17 17:58 Last Admin: 12/18/17 17:58 Dose: 89 ml Ketorolac Tromethamine (Toradol) 30 mg IVPUSH ONETIME ONE Stop: 12/18/17 16:23 Last Admin: 12/18/17 16:36 Dose: 30 mg Morphine Sulfate (Morphine) 4 mg IVPUSH ONETIME ONE Stop: 12/18/17 17:59 Last Admin: 12/18/17 18:08 Dose: 4 mg Ondansetron HCl (Zofran) 4 mg IVPUSH ONETIME ONE Stop: 12/18/17 16:23 Last Admin: 12/18/17 16:36 Dose: 4 mg - Exam General: Reports: Alert, Oriented, Cooperative, No Acute Distress Lungs: Reports: Clear to Auscultation, Normal Respiratory Effort Cardiovascular: Reports: Regular Rate, Regular Rhythm GI/Abdominal Exam: Normal Bowel Sounds, Soft, Non-Tender, No Organomegaly, No Distention, No Abnormal Bruit, No Mass, Pelvis Stable Back Exam: Reports: Normal Inspection, Full Range of Motion Extremities: Normal Inspection, Normal Range of Motion, Non-Tender, No Pedal Edema, Normal Capillary Refill Neurological: Reports: No New Focal Deficit Psy/Mental Status: Reports: Alert, Normal Affect, Normal Mood *Q Meaningful Use (DIS) - VTE *Q VTE Criteria *Q: - Stroke *Q Stroke Criteria *Q: - AMI *Q AMI Criteria *Q:
[2017-12-19] MEDS ORDERED: buPROPion 100 MG Tab PO SCH (09:00)
[2017-12-19] MEDS ORDERED: Gabapentin 300 MG Cap PO SCH (09:00)
[2017-12-19] MEDS ORDERED: amLODIPine 5 MG Tab PO SCH (09:00)
[2017-12-19] MEDS ORDERED: DULoxetine 60 MG Cap PO SCH (09:00)
[2017-12-19] MEDS ORDERED: cloNIDine 0.1 MG Tab PO SCH (09:00)
[2017-12-19] MEDS ORDERED: LURASIDONE HCL PO SCH (09:00)
--- NOTE | 2017-12-19 16:03 | CR ---
EXAM DATE: 12/18/17 PATIENT'S AGE: 61 Patient: CHRISS SANTIAGO Facility: [place], [place] Site . Site : 1955 Study: XRay Chest [id number] 5:08:35 PM Ordering Physician: Doctor Del Rio Final Report: INDICATION: EPIGASTRIC PAIN TECHNIQUE: Chest 1 view. COMPARISON: None. FINDINGS: Cardiovascular and mediastinum: Heart size and vasculature are normal in caliber and appearance. Mediastinum is within normal limits. Lungs and pleural space: Lungs are clear. No sign of infiltrate or mass. No sign of pleural effusion. No pneumothorax. Bones and soft tissues: No significant findings. IMPRESSION: Unremarkable chest. Dictated by: Franc Aviles MD @ 12/18/2017 17:39:29 (Electronic Signature) Report Signed by Proxy. [facility] NETWORKDelvin
--- NOTE | 2017-12-19 16:04 | CT ---
EXAM DATE: 12/18/17 PATIENT'S AGE: 61 Patient: CHRISS SANTIAGO Facility: [place], [place] Site . Site : 1955 Study: CT Abdomen/Pelvis w cont [id number] 6:04:22 PM Ordering Physician: Doctor Del Rio Final Report: INDICATION: Right upper quadrant pain. Elevated AST/ALT. TECHNIQUE: CT abdomen and pelvis acquired with IV contrast. COMPARISON: None available FINDINGS: Lower chest: Minor compressive changes. Small soft tissue nodules in the bilateral breasts. Liver: Central periportal edema. A 1.7 x 1.6 centimeter hepatic cyst and additional subcentimeter hepatic low-density lesions which probably represent cysts as well. Spleen: Unremarkable. Pancreas: Subcentimeter low-density lesions in the pancreatic body on image 42, too small to characterize. Gallbladder and bile ducts: Cholelithiasis and gallbladder sludge within a moderately distended gallbladder. Pericholecystic fluid. Adrenal glands: Unremarkable. Kidneys: No hydronephrosis. Subcentimeter right renal low-density lesions, statistically small cysts. GI tract: A mildly distended fluid-filled stomach. No mechanical small bowel obstruction. A normal appendix. No significant pericolonic changes. Stool throughout the majority of the colon. Vascular structures: Unremarkable. Lymph nodes: Shotty periportal and portacaval lymph nodes, nonspecific. Miscellaneous: No free air. A small fat containing umbilical hernia. Pelvic Organs: Globular uterine body which may be represent myomatous change. No discrete bladder abnormality seen. Bones: Unremarkable for age. IMPRESSION: Cholelithiasis with pericholecystic fluid. Correlate with sonography for cholecystitis. Central periportal edema, nonspecific. Hepatic cysts. Subcentimeter pancreatic low-density lesions, too small to characterize. Consider 12 month followup. A possibly myomatous uterus. Small soft tissue nodules in the bilateral breasts. Correlate with mammography. Dictated by Lobo Murillo MD @ 12/18/2017 6:53:37 PM Dictated by: Lobo Murillo MD @ 12/18/2017 18:53:43 (Electronic Signature) Report Signed by Proxy. [facility]ITALDelvin
[2017-12-19] MEDS ORDERED: atorvaSTATin 20 MG Tab PO SCH (21:00)
== END 2017-12-19 09:20 | DRG 445 ==
LOC: MW.ED 16:19 → MW.MS 19:18
PROVIDERS: ADMIT Family Medicine; ATTEND Family Medicine
DX: K80.20 Calculus of gallbladder without cholecystitis without obstruction (principal); R10.13 Epigastric pain; R74.8 Abnormal levels of other serum enzymes; K80.00 Calculus of gallbladder with acute cholecystitis without obstruction; N30.00 Acute cystitis without hematuria; E78.00 Pure hypercholesterolemia, unspecified; I10 Essential (primary) hypertension; Z79.899 Other long term (current) drug therapy; F31.9 Bipolar disorder, unspecified; F17.200 Nicotine dependence, unspecified, uncomplicated
CPT/HCPCS: 36415; 71045; 74177; 80053; 81001; 82150; 83690; 84484; 85025; 86677; 87086; 93005; 96361; 96375; 99285; J1885; J2270; J2405; J7040; Q9967; 83735; 85610; 87040; 96365; 96368; 99284; J0744

== ENCOUNTER 2018-01-22 07:53 | Day surgery (SDC) | payer MEDICAID ==
[~2018-01-22 07:53] MED LIST: Bupivacaine 0.5% 30 ML SDV ONE; Lactated Ringers 1,000 ML IV SCH; Sodium Chloride 0.9% 10 ML Syringe FLUSH PRN; Sodium Chloride 0.9% 2.5 ML Syringe FLUSH PRN; ceFAZolin 2 GM in Premix Bag 1 BAG IV ONE
[2018-01-22] MEDS ORDERED: Propofol 200 MG/20 ML SDV ONE ×3 (07:56→10:01)
[2018-01-22] MEDS ORDERED: Lidocaine 2% 5 ML SDV ONE ×2 (08:10→08:47)
[2018-01-22] MEDS ORDERED: Scopolamine 1.5 MG Transdermal Patch TRDERM PRN (08:34)
--- NOTE | 2018-01-22 08:34 | PCM.PREANE ---
Preanesthetic Assessment - Anesthesia/Transfusion/Family Hx Anesthesia History: Prior Anesthesia Without Reaction Family History of Anesthesia Reaction: No Transfusion History: No Prior Transfusion(s) Intubation History: Unknown - Review of Systems General: No Symptoms Pulmonary: No Symptoms Gastrointestinal: Abdominal Pain Neurological: No Symptoms Other: Reports: None - Physical Assessment Height: 1.75 m Weight: 73.482 kg ASA Class: 2 Mental Status: Alert & Oriented x3 Airway Class: Mallampati = 2 Dentition: Reports: Normal Dentition Thyro-Mental Finger Breadths: 3 Mouth Opening Finger Breadths: 3 ROM/Head Extension: Full Lungs: Clear to Auscultation, Normal Respiratory Effort Cardiovascular: Regular Rate, Regular Rhythm - Allergies Allergies/Adverse Reactions: Allergies Allergy/AdvReac Type Severity Reaction Status Date / Time Dust Allergy Mild nasal Uncoded 12/18/17 21:08 congestion, sneezing Pollen Allergy Mild Nasal Uncoded 12/18/17 21:08 congestion - Blood Blood Available: No - Anesthesia Plan Pre-Op Medication Ordered: None - Acknowledgements Anesthesia Type Planned: General Anesthesia Pt an Appropriate Candidate for the Planned Anesthesia: Yes Alternatives and Risks of Anesthesia Discussed w Pt/Guardian: Yes Pt/Guardian Understands and Agrees with Anesthesia Plan: Yes PreAnesthesia Questionnaire HEENT History: Reports: None Cardiovascular History: Reports: High Cholesterol, Hypertension Respiratory History: Reports: None Gastrointestinal History: Reports: Cholelithiasis Genitourinary History: Reports: None LEAD CONSULTANT History: Reports: None Musculoskeletal History: Reports: Arthritis, Back Pain, Chronic, Osteoarthritis Neurological History: Reports: None Psychiatric History: Reports: Anxiety, Bipolar, Depression Endocrine/Metabolic History: Reports: None Hematologic History: Reports: None Immunologic History: Reports: None Oncologic (Cancer) History: Reports: None Dermatologic History: Reports: None - Past Surgical History Head Surgeries/Procedures: Reports: None HEENT Surgical History: Reports: None Cardiovascular Surgical History: Reports: None Respiratory Surgical History: Reports: None GI Surgical History: Reports: None Female Surgical History: Reports: Tubal Ligation Endocrine Surgical History: Reports: None Neurological Surgical History: Reports: None Musculoskeletal Surgical History: Reports: None Oncologic Surgical History: Reports: None - SUBSTANCE USE Smoking Status *Q: Current Every Day Smoker (1/2 ppd) Tobacco Use Within Last Twelve Months: Cigarettes Second Hand Smoke Exposure: No Recreational Drug Use History: No - HOME MEDS Home Medications: Home Meds DULoxetine HCl [Cymbalta] 1 tab PO DAILY 04/23/16 [History] Gabapentin [Neurontin] 1 tab PO BID 04/23/16 [History] amLODIPine [Norvasc] 1 tab PO DAILY 04/23/16 [History] Lurasidone HCl [Latuda] 1 tab PO DAILY 11/09/17 [History] cloNIDine HCl [Catapres] 1 tab PO BID PRN 11/09/17 [History] - CURRENT (IN HOUSE) MEDS Current Meds: Current Medications Lactated Ringer's (Ringers, Lactated) 1,000 mls @ 125 mls/hr IV ASDIRECTED [facility] Sodium Chloride (Saline Flush) 10 ml FLUSH ASDIRECTED PRN PRN Reason: Keep Vein Open Sodium Chloride (Saline Flush) 2.5 ml FLUSH ASDIRECTED PRN PRN Reason: Keep Vein Open Discontinued Medications Bupivacaine HCl (Marcaine 0.5%) Confirm Administered Dose 30 ml .ROUTE .STK-MED ONE Stop: 01/22/18 07:36 Cefazolin Sodium/Dextrose 2 gm (/ Premix) 50 mls @ 100 mls/hr IV ONETIME ONE Stop: 01/21/18 11:27 Lidocaine (Xylocaine-Mpf 2%) Confirm Administered Dose 5 ml .ROUTE .STK-MED ONE Stop: 01/22/18 08:11 Propofol (Diprivan 20 Ml) Confirm Administered Dose 200 mg .ROUTE .STK-MED ONE Stop: 01/22/18 07:57
[2018-01-22] MEDS ORDERED: fentaNYL 100 MCG/2 ML SDV ONE (08:47)
[2018-01-22] MEDS ORDERED: Midazolam 1 MG/ML 2 ML SDV ONE (08:48)
[2018-01-22] MEDS ORDERED: Ketorolac 30 MG/ML SDV ONE (08:53)
[2018-01-22] MEDS ORDERED: Glycopyrrolate 0.2 MG/ML SDV ONE (08:53)
[2018-01-22] MEDS ORDERED: Neostigmine Methylsulfate 1 MG/ML 5 ML Syringe ONE (08:53)
[2018-01-22] MEDS ORDERED: Rocuronium 10 MG/ML 10 ML Syringe ONE (08:53)
[2018-01-22] MEDS ORDERED: Ondansetron 4 MG/2 ML SDV ONE (08:53)
[2018-01-22] MEDS ORDERED: HYDROmorphone 2 MG/ML SDV ONE (09:15)
[2018-01-22] MEDS ORDERED: fentaNYL 100 MCG/2 ML SDV IVPUSH PRN (09:31)
[2018-01-22] MEDS ORDERED: HYDROmorphone 2 MG/ML SDV IVPUSH ONE (09:31)
--- NOTE | 2018-01-22 10:37 | PCM.OPNOTE ---
- General Post-Op/Procedure Note Date of Surgery/Procedure: 01/22/18 Operative Procedure(s): Laparoscopic cholecystectomy Findings: Normal appearing gallbladder with tortuous cystic duct. Small tortuous appearing blood vessels on nearby small bowel. Otherwise normal appearing liver , stomach, colon. Pre Op Diagnosis: Choledocholithiasis Post-Op Diagnosis: same Anesthesia Technique: General ET Tube Primary Surgeon: Melonie Dunlap Secondary Surgeon: Nelson Ruiz Pathology: Gallbladder Fluid Replacement, Intraop: 1,700 Output, Urine Amount: 55 EBL in mLs: 10 Condition: Good
[2018-01-22] MEDS ORDERED: Albuterol 0.083% 2.5 MG/3 ML Neb Soln NEB ONE (10:57)
[2018-01-22] MEDS ORDERED: Albuterol 0.5% 2.5 MG/0.5 ML Neb Soln NEB SCH (11:00)
[2018-01-22] MEDS ORDERED: Acetaminophen/oxyCODONE 325-5 MG Tab PO PRN (12:00)
--- NOTE | 2018-01-22 12:03 | OR ---
SURGEON: LYNETTE COLLAZO MD DATE OF PROCEDURE: 01/22/2018 PREOPERATIVE DIAGNOSIS: Cholelithiasis. POSTOPERATIVE DIAGNOSIS: Cholelithiasis. PROCEDURE PERFORMED: Laparoscopic cholecystectomy. VISUAL DISPLAY ASSOCIATE: Nelson Ruiz ANESTHESIA: General endotracheal anesthesia. FLUIDS: 1700 mL crystalloid. URINE OUTPUT: 55 mL. ESTIMATED BLOOD LOSS: 10 mL. FINDINGS: Normal-appearing gallbladder. Small tortuous vessels on the small bowel. Otherwise, liver, stomach, and colon all appeared normal. COMPLICATIONS: None. INDICATIONS: The patient is a 62-year-old female, who was recently admitted for transaminitis with no elevation in her bilirubin. An MRCP revealed cholelithiasis with no evidence of choledocholithiasis and normal-appearing common bile duct. The patient was taken off several medications that were felt to be the cause of the transaminitis. The patient's liver function tests have now returned to normal. She has never had any biliary colic. The decision was made to remove the gallbladder given the finding of cholelithiasis. The patient and I discussed the laparoscopic and open procedures. Should I be unable to perform it laparoscopically, I will convert to open. We discussed the expected perioperative course as well as the risks including bleeding, infection, or damage to surrounding structures. The patient verbalized understanding and wishes to proceed. PROCEDURE IN DETAIL: The patient was brought into the OR and placed on the OR table in supine position. A time-out was completed verifying the patient's name, age, date of , allergies, and procedure to be performed. General endotracheal anesthesia was induced. The left arm was tucked to the patient's side and a Villa catheter placed. The abdomen was prepped and draped in the usual standard fashion. I anesthetized an area along the lower midline with 0.5% Marcaine plain. A 15 blade was used to make an incision along the lower midline. The incision was placed here because the patient had a very small torso. Cautery was used to dissect down into the subcutaneous fat. [place] retractors were used to bluntly dissect down to the level of fascia. The fascia was elevated with Luc's and incised sharply with the Metzenbaum scissors. Entry into the abdomen was done with blunt dissection. 0 Vicryl suture was placed on either side of the fascia. A 12-mm Lamine trocar was placed through the opening and the abdomen insufflated to a pressure of 12 mmHg. A 5-mm 30-degree scope was inserted in the abdomen and I inspected the area under my initial trocar placement. No damage to surrounding structures was noted. The patient was placed into reverse Trendelenburg position and airplaned slightly to the left. Three trocars were placed in the following locations under direct visualization, one in the epigastric area, one in the right flank, and one along the 2 fingerbreadths below the right subcostal margin in the midclavicular line. The dome of the gallbladder was grasped with an atraumatic grasper through the right lateral flank port and lifted above the liver. This exposed the infundibulum. This was grasped with an atraumatic grasper and retracted to the right and laterally. The peritoneum overlying the cystic duct and artery was dissected away with a combination of suction dissection, blunt dissection, and hook cautery. Once I identified my cystic duct and artery clearly as well, I had dissected away 1/3rd of the cystic plate, I doubly clipped and ligated the cystic duct and artery. Cautery was used then to dissect the gallbladder off the gallbladder fossa the remainder of the way. Upon doing this, I did enter the gallbladder and a small amount of bile was spilled into the abdomen. Once the gallbladder was removed from the gallbladder fossa, it was placed in EndoCatch bag and removed through the infraumbilical port site. The Lamine trocar was replaced into the abdomen and I inspected my operative field. It appeared hemostatic with no evidence of bile leakage. The abdomen was irrigated copiously with 750 mL of normal saline until it ran clear. The trocars were then removed under direct visualization and the abdomen allowed to desufflate. The fascia at the infraumbilical port site was closed with interrupted 3-0 Vicryl sutures. The subcutaneous fat was closed with interrupted 3-0 Vicryl and the skin was closed with a running 4-0 Monocryl stitch in the subcuticular space. The 5-0 trocars sites were closed with interrupted 4-0 Monocryl sutures. Steri-Strips and sterile dressings were applied. The patient tolerated the procedure well and was taken to PACU in stable condition. BARRY VIDES /[id number]
--- NOTE | 2018-01-22 12:27 | PCM.POSTAN ---
POST ANESTHESIA ASSESSMENT - MENTAL STATUS Mental Status: Alert, Oriented - RESPIRATORY Respiratory Status: Respiratory Rate WNL, Airway Patent, O2 Saturation Stable - CARDIOVASCULAR CV Status: Pulse Rate WNL, Blood Pressure Stable - GASTROINTESTINAL GI Status: No Symptoms - PAIN Pain Score: 6 - POST OP HYDRATION Hydration Status: Adequate & Stable - OBSERVATIONS Free Text/Narrative:: no anesthesia problems
--- NOTE | 2018-01-22 13:33 | PCM48HPAN ---
Post Anesthesia Note - EVALUATION WITHIN 48HRS OF ANESTHETIC Vital Signs in Normal Range: Yes Patient Participated in Evaluation: Yes Respiratory Function Stable: Yes Airway Patent: Yes Cardiovascular Function Stable: Yes Hydration Status Stable: Yes Pain Control Satisfactory: Yes Nausea and Vomiting Control Satisfactory: Yes Mental Status Recovered: Yes Resp Rate: 10 - COMMENTS/OBSERVATIONS Free Text/Narrative:: no anesthesia problems
[2018-01-22 14:10] VITALS: BP 137/100
== END 2018-01-22 13:50 | disposition home or self-care (01) ==
LOC: MW.SDS 07:53
PROVIDERS: ATTEND Surgery
DX: K80.10 Calculus of gallbladder with chronic cholecystitis without obstruction (principal); N60.19 Diffuse cystic mastopathy of unspecified breast; E78.00 Pure hypercholesterolemia, unspecified; I10 Essential (primary) hypertension; M19.90 Unspecified osteoarthritis, unspecified site; M81.0 Age-related osteoporosis without current pathological fracture; F41.9 Anxiety disorder, unspecified; F31.9 Bipolar disorder, unspecified; F17.210 Nicotine dependence, cigarettes, uncomplicated; Z79.899 Other long term (current) drug therapy; Z98.51 Tubal ligation status; Z91.09 Other allergy status, other than to drugs and biological substances
CPT/HCPCS: 47562; 88304; 94640; A9270; J1170; J1885; J2250; J2405; J3010; J7120; 00790; J2704

== ENCOUNTER 2018-04-27 17:58 | Emergency (ER) | payer MEDICAID ==
[2018-04-27] MEDS ORDERED: LORazepam 1 MG Tab PO ONE (18:14)
--- NOTE | 2018-04-27 18:18 | EDM.PDOC ---
ED HPI GENERAL MEDICAL PROBLEM - General Source of Information: Reports: Patient, Old Records History Limitations: Reports: No Limitations - History of Present Illness Onset: Gradual Duration: Day(s):, Getting Worse Location: Reports: Head Severity: Moderate Improves with: Reports: None Worsens with: Reports: None left shoulder Pain Score (Numeric/FACES): 7 - General Chief Complaint: Behavioral/Psych Stated Complaint: SUICIDAL THOUGHTS Time Seen by Provider: 04/27/18 18:15 - History of Present Illness INITIAL COMMENTS - FREE TEXT/NARRATIVE: HISTORY AND PHYSICAL: []62-year-old female presenting with concerns over suicidal ideations History of Present Illness: []Patient has missed several of her medicines for the last 3-4 days She had seen a counselor at [facility]. and the counselor had asked if she could wait until Saturday to refill these meds she was out and has not taken them Patient has history of bipolar disorder and hypertension Review of Systems: As per history of present illness and below otherwise all systems reviewed and negative. Past medical history: As per history of present illness and as reviewed below otherwise noncontributory. Surgical history: As per history of present illness and as reviewed below otherwise noncontributory. Social history: No reported history of drug or alcohol abuse. Family history: As per history of present illness and as reviewed below otherwise noncontributory. Physical exam: Patient does report her of thoughts of harming herself with the barbecue equipment She wants to cut herself with the barbecue scraper She wants to push the barbecue fork tines into her body. Poor eye contact admission looks away as you're talking to her and she responds Reports never having had these symptoms previously Admission is very flat affect and has poor eye contact continues to look away from you as she is speaking HEENT: Atraumatic, normocehpalic, pupils reactive, negative for conjunctival pallor or scleral icterus, mucous membranes moist, throat clear, neck supple, nontender, trachea midline. Lungs: Clear to auscultation, breath sounds equal bilaterally, chest non tender. Heart: S1S2, regular, negative for clicks, rubs, or JVD. Abdomen: Soft, nondistended, nontender. Negative for masses or hepatossplenmegaly. Negative for costovertebral tenderness. Pelvis: Stable nontender. Genitourinary: Deferred. Rectal: Deferred Extremities: Atraumatic, negative for cords or calf pain. Neurovascular unremarkable. Neuro: Awake, alert, oriented. Cranial nerves II through XII unremarkable. Cerebellum unremarkable. Motor and sensory unremarkable throughout. Exam nonfocal. Have discussed this case with Dr. Tapia at [facility] and he is checking with supervisor housecleaner to see if there are any female problems and will call me back. Diagnostics: []CBC CMP EKG chest x-ray you UA drug screen Therapeutics: []Ativan Norvasc 5 mg by mouth Impression: []Suicidal ideations Plan: [] Definitive disposition and diagnosis as appropriate pending reevaluation and review of above. (Shiela Torres) Dr. Tapia did recontact us from [facility] and did accept the patient for transfer. Arrangements were made for that transfer and patient was agreeable. ( Jocelyn Lewis) - Related Data Allergies Allergy/AdvReac Type Severity Reaction Status Date / Time Dust Allergy Mild nasal Uncoded 04/27/18 18:13 congestion, sneezing Pollen Allergy Mild Nasal Uncoded 04/27/18 18:13 congestion Home Meds: Home Meds DULoxetine HCl [Cymbalta] 1 tab PO DAILY 04/23/16 [History] Gabapentin [Neurontin] 1 tab PO BID 04/23/16 [History] amLODIPine [Norvasc] 1 tab PO DAILY 04/23/16 [History] Lurasidone HCl [Latuda] 2 tab PO DAILY 11/09/17 [History] cloNIDine HCl [Catapres] 1 tab PO BID PRN 11/09/17 [History] Past Medical History HEENT History: Reports: None Cardiovascular History: Reports: High Cholesterol, Hypertension Respiratory History: Reports: None Gastrointestinal History: Reports: Cholelithiasis Genitourinary History: Reports: None DROP WIRE BUILDER History: Reports: None Musculoskeletal History: Reports: Arthritis, Back Pain, Chronic, Osteoarthritis Neurological History: Reports: None Psychiatric History: Reports: Anxiety, Bipolar, Depression Endocrine/Metabolic History: Reports: None Hematologic History: Reports: None Immunologic History: Reports: None Oncologic (Cancer) History: Reports: None Dermatologic History: Reports: None - Past Surgical History Head Surgeries/Procedures: Reports: None HEENT Surgical History: Reports: None Cardiovascular Surgical History: Reports: None Respiratory Surgical History: Reports: None GI Surgical History: Reports: None Female Surgical History: Reports: Tubal Ligation Endocrine Surgical History: Reports: None Neurological Surgical History: Reports: None Musculoskeletal Surgical History: Reports: None Oncologic Surgical History: Reports: None Social & Family History - Family History Family Medical History: Noncontributory - Caffeine Use Caffeine Use: Reports: None ED ROS GENERAL - Review of Systems Review Of Systems: ROS reveals no pertinent complaints other than HPI. - Physical Exam Exam: See Below (see dictation) - Vital Signs Last Recorded V/S: Last Vital Signs Temp 37.1 C 04/27/18 18:13 Pulse 90 04/27/18 18:53 Resp 16 04/27/18 18:53 BP 151/85 H 04/27/18 18:53 Pulse Ox 97 04/27/18 18:53 - Orders/Labs/Meds Orders: Active Orders 24 hr Category Date Time Status EKG Documentation Completion [RC] STAT Care 04/27/18 18:17 Active DRUG SCREEN, URINE [URCHEM] Stat Lab 04/27/18 19:05 Ordered UA W/MICROSCOPIC [URIN] Stat Lab 04/27/18 19:05 Ordered Labs: Laboratory Tests 04/27/18 04/27/18 04/27/18 Range/Units 18:42 18:42 19:05 WBC 9.27 (4.0-11.0) K/uL RBC 5.17 (4.30-5.90) M/uL Hgb 15.6 (12.0-16.0) g/dL Hct 46.0 (36.0-46.0) % MCV 89.0 (80.0-98.0) fL MCH 30.2 (27.0-32.0) pg MCHC 33.9 (31.0-37.0) g/dL RDW Std Deviation 42.1 (28.0-62.0) fl RDW Coeff of Richard 13 (11.0-15.0) % Plt Count 223 (150-400) K/uL MPV 9.80 (7.40-12.00) fL Neut % (Auto) 64.4 (48.0-80.0) % Lymph % (Auto) 25.7 (16.0-40.0) % [place] % (Auto) 7.9 (0.0-15.0) % Eos % (Auto) 1.8 (0.0-7.0) % Baso % (Auto) 0.2 (0.0-1.5) % Neut # (Auto) 6.0 H (1.4-5.7) K/uL Lymph # (Auto) 2.4 (0.6-2.4) K/uL [place] # (Auto) 0.7 (0.0-0.8) K/uL Eos # (Auto) 0.2 (0.0-0.7) K/uL Baso # (Auto) 0.0 (0.0-0.1) K/uL Nucleated RBC % 0.0 /100WBC Nucleated RBCs # 0 K/uL Sodium 142 (136-145) mmol/L Potassium 3.5 (3.5-5.1) mmol/L Chloride 105 (98-107) mmol/L Carbon Dioxide 28.0 (21.0-32.0) mmol/L BUN 15 (7.0-18.0) mg/dL Creatinine 1.1 H (0.6-1.0) mg/dL Est Cr Clr Drug Dosing 56.84 mL/min Estimated GFR (MDRD) 50.7 ml/min Glucose 149 H (74-106) mg/dL Calcium 8.8 (8.5-10.1) mg/dL Magnesium 2.1 H (1.5-2.0) mg/dL Total Bilirubin 0.3 (0.2-1.0) mg/dL AST 16 (15-37) IU/L ALT 25 (14-63) IU/L Alkaline Phosphatase 101 (46-116) U/L Total Protein 7.3 (6.4-8.2) g/dL Albumin 3.3 L (3.4-5.0) g/dL Globulin 4.0 H (2.0-3.5) g/dL Albumin/Globulin Ratio 0.8 L (1.3-2.8) TSH 3rd Generation 1.49 (0.36-3.74) uIU/mL Urine Color YELLOW Urine Appearance CLEAR Urine pH 6.0 (5.0-8.0) Ur Specific [place] 1.020 (1.001-1.035) Urine Protein NEGATIVE (NEGATIVE) mg/dL Urine Glucose (UA) NEGATIVE (NEGATIVE) mg/dL Urine Ketones NEGATIVE (NEGATIVE) mg/dL Urine Occult Blood SMALL H (NEGATIVE) Urine Nitrite NEGATIVE (NEGATIVE) Urine Bilirubin NEGATIVE (NEGATIVE) Urine Urobilinogen 0.2 (<2.0) EU/dL Ur Leukocyte Esterase MODERATE (NEGATIVE) Urine RBC 1-2 (0-2/HPF) Urine WBC 3-4 (0-5/HPF) Ur Epithelial Cells OCCASIONAL (NONE-FEW) Urine Bacteria 1+ H (NEGATIVE) Salicylates 2.6 (0-20) mg/dL Urine Opiates Screen (NEGATIVE) Ur Oxycodone Screen (NEGATIVE) Urine Methadone Screen (NEGATIVE) Acetaminophen 0.0 ug/mL Ur Barbiturates Screen (NEGATIVE) Ur Phencyclidine Scrn (NEGATIVE) Ur Amphetamine Screen (NEGATIVE) U Methamphetamines Scrn (NEGATIVE) U Benzodiazepines Scrn (NEGATIVE) U Cocaine Metab Screen (NEGATIVE) U Marijuana (THC) Screen (NEGATIVE) Ethyl Alcohol <3 mg/dL 04/27/18 Range/Units 19:05 WBC (4.0-11.0) K/uL RBC (4.30-5.90) M/uL Hgb (12.0-16.0) g/dL Hct (36.0-46.0) % MCV (80.0-98.0) fL MCH (27.0-32.0) pg MCHC (31.0-37.0) g/dL RDW Std Deviation (28.0-62.0) fl RDW Coeff of Richard (11.0-15.0) % Plt Count (150-400) K/uL MPV (7.40-12.00) fL Neut % (Auto) (48.0-80.0) % Lymph % (Auto) (16.0-40.0) % [place] % (Auto) (0.0-15.0) % Eos % (Auto) (0.0-7.0) % Baso % (Auto) (0.0-1.5) % Neut # (Auto) (1.4-5.7) K/uL Lymph # (Auto) (0.6-2.4) K/uL [place] # (Auto) (0.0-0.8) K/uL Eos # (Auto) (0.0-0.7) K/uL Baso # (Auto) (0.0-0.1) K/uL Nucleated RBC % /100WBC Nucleated RBCs # K/uL Sodium (136-145) mmol/L Potassium (3.5-5.1) mmol/L Chloride (98-107) mmol/L Carbon Dioxide (21.0-32.0) mmol/L BUN (7.0-18.0) mg/dL Creatinine (0.6-1.0) mg/dL Est Cr Clr Drug Dosing mL/min Estimated GFR (MDRD) ml/min Glucose (74-106) mg/dL Calcium (8.5-10.1) mg/dL Magnesium (1.5-2.0) mg/dL Total Bilirubin (0.2-1.0) mg/dL AST (15-37) IU/L ALT (14-63) IU/L Alkaline Phosphatase (46-116) U/L Total Protein (6.4-8.2) g/dL Albumin (3.4-5.0) g/dL Globulin (2.0-3.5) g/dL Albumin/Globulin Ratio (1.3-2.8) TSH 3rd Generation (0.36-3.74) uIU/mL Urine Color Urine Appearance Urine pH (5.0-8.0) Ur Specific [place] (1.001-1.035) Urine Protein (NEGATIVE) mg/dL Urine Glucose (UA) (NEGATIVE) mg/dL Urine Ketones (NEGATIVE) mg/dL Urine Occult Blood (NEGATIVE) Urine Nitrite (NEGATIVE) Urine Bilirubin (NEGATIVE) Urine Urobilinogen (<2.0) EU/dL Ur Leukocyte Esterase (NEGATIVE) Urine RBC (0-2/HPF) Urine WBC (0-5/HPF) Ur Epithelial Cells (NONE-FEW) Urine Bacteria (NEGATIVE) Salicylates (0-20) mg/dL Urine Opiates Screen NEGATIVE (NEGATIVE) Ur Oxycodone Screen NEGATIVE (NEGATIVE) Urine Methadone Screen NEGATIVE (NEGATIVE) Acetaminophen ug/mL Ur Barbiturates Screen NEGATIVE (NEGATIVE) Ur Phencyclidine Scrn NEGATIVE (NEGATIVE) Ur Amphetamine Screen NEGATIVE (NEGATIVE) U Methamphetamines Scrn NEGATIVE (NEGATIVE) U Benzodiazepines Scrn NEGATIVE (NEGATIVE) U Cocaine Metab Screen NEGATIVE (NEGATIVE) U Marijuana (THC) Screen NEGATIVE (NEGATIVE) Ethyl Alcohol mg/dL Meds: Medications Discontinued Medications Generic Name Dose Route Start Last Admin Trade Name Freq PRN Reason Stop Dose Admin Amlodipine Besylate 5 mg 04/27/18 18:23 04/27/18 18:45 Norvasc PO 04/27/18 18:24 5 mg ONETIME ONE Administration Lorazepam 1 mg 04/27/18 18:14 04/27/18 18:45 Ativan PO 04/27/18 18:15 1 mg ONETIME ONE Administration Nicotine 21 mg 04/27/18 18:51 04/27/18 19:01 Habitrol TRDERM 04/27/18 18:52 Not Given ONETIME ONE Nicotine 14 mg 04/27/18 18:52 04/27/18 18:59 Habitrol TRDERM 04/27/18 18:53 14 mg ONETIME ONE Administration Departure - Departure Time of Disposition: 18:30 Condition: Fair - Departure Disposition: Home, Self-Care 01 Clinical Impression: Self-harm - Discharge Information Referrals: PCP,None [Primary Care Provider] - Forms: ED Department Discharge Additional Instructions: The following information is given to patients seen in the emergency department who are being discharged to home. This information is to outline your options for follow-up care. We provide all patients seen in our emergency department with a follow-up referral. The need for follow-up, as well as the timing and circumstances, are variable depending upon the specifics of your emergency department visit. If you don't have a primary care physician on staff, we will provide you with a referral. We always advise you to contact your personal physician following an emergency department visit to inform them of the circumstance of the visit and for follow-up with them and/or the need for any referrals to a consulting specialist. The emergency department will also refer you to a specialist when appropriate. This referral assures that you have the opportunity for followup care with a specialist. All of these measure are taken in an effort to provide you with optimal care, which includes your followup. Under all circumstances we always encourage you to contact your private physician who remains a resource for coordinating your care. When calling for followup care, please make the office aware that this follow-up is from your recent emergency room visit. If for any reason you are refused follow-up, please contact the [facility] emergency department at and asked to speak to the emergency department charge nurse. He comes of your thoughts of self-harm we are sending you to psychiatric professionals will be able to help you through this crisis situation
[2018-04-27] MEDS ORDERED: amLODIPine 5 MG Tab PO ONE (18:23)
[2018-04-27] MEDS ORDERED: Nicotine 21 MG/24 Hr Patch TRDERM ONE (18:51)
[2018-04-27] MEDS ORDERED: Nicotine 14 MG/24 Hr Patch TRDERM ONE (18:52)
[2018-04-27 19:05] VITALS: BP 151/85
[2018-04-27 19:18] LABS: CHLORIDE,CL 105 mmol/L (98-107); SODIUM,NA 142 mmol/L (136-145)
== END 2018-04-27 19:11 ==
LOC: MW.ED 17:58
DX: R45.851 Suicidal ideations (principal); E78.00 Pure hypercholesterolemia, unspecified; I10 Essential (primary) hypertension; Z91.048 Other nonmedicinal substance allergy status; Z79.899 Other long term (current) drug therapy
CPT/HCPCS: 36415; 80053; 80305; 81001; 83735; 84443; 85025; 93005; 99285; A9270; G0480; 99283

== ENCOUNTER 2021-10-19 09:07 | Day surgery (SDC) | payer MEDICAID ==
[~2021-10-19 09:07] MED LIST changes: -Bupivacaine 0.5% 30 ML SDV ONE; +Sodium Chloride 0.9% 20 ML SDV IV PRN; -ceFAZolin 2 GM in Premix Bag 1 BAG IV ONE
--- NOTE | 2021-10-19 10:29 | PCM.PREANE ---
Preanesthetic Assessment - Anesthesia/Transfusion/Family Hx Anesthesia History: Prior Anesthesia Without Reaction Transfusion History: No Prior Transfusion(s) Intubation History: Unknown - Review of Systems General: No Symptoms Pulmonary: No Symptoms Cardiovascular: No Symptoms Gastrointestinal: No Symptoms Neurological: No Symptoms Other: Reports: None - Physical Assessment NPO Status Date: 10/19/21 NPO Status Time: 00:00 Vital Signs: Last Vital Signs Temp 96.1 F L 10/19/21 09:22 Pulse 102 H 10/19/21 09:22 Resp 14 10/19/21 09:22 BP 160/99 H 10/19/21 09:22 Pulse Ox 95 10/19/21 09:22 Height: 5 ft 9 in Weight: 188 lb ASA Class: 3 Mental Status: Alert & Oriented x3 Airway Class: Mallampati = 2 Dentition: Reports: Normal Dentition ROM/Head Extension: Full Lungs: Clear to Auscultation, Normal Respiratory Effort Cardiovascular: Regular Rate, Regular Rhythm - Lab Values: Laboratory Last Values POC Glucose 136 mg/dL (70-99) H 10/19/21 09:32 - Allergies Allergies/Adverse Reactions: Allergies Allergy/AdvReac Type Severity Reaction Status Date / Time Dust Allergy Mild nasal Uncoded 04/27/18 18:13 congestion, sneezing Pollen Allergy Mild Nasal Uncoded 04/27/18 18:13 congestion - Acknowledgements Anesthesia Type Planned: General Anesthesia Pt an Appropriate Candidate for the Planned Anesthesia: Yes Alternatives and Risks of Anesthesia Discussed w Pt/Guardian: Yes Pt/Guardian Understands and Agrees with Anesthesia Plan: Yes PreAnesthesia Questionnaire HEENT History: Reports: Other (See Below) Other HEENT History: uses reading glasses Cardiovascular History: Reports: High Cholesterol, Hypertension Respiratory History: Reports: None Gastrointestinal History: Reports: Cholelithiasis Genitourinary History: Reports: None PUTTER IN History: Reports: Musculoskeletal History: Reports: None Neurological History: Reports: None Psychiatric History: Reports: Anxiety, Bipolar, Depression Endocrine/Metabolic History: Reports: Diabetes, Type II Hematologic History: Reports: None Immunologic History: Reports: None Oncologic (Cancer) History: Reports: None Dermatologic History: Reports: None - Infectious Disease History Infectious Disease History: Reports: Chicken Pox, Mumps - Past Surgical History Head Surgeries/Procedures: Reports: None HEENT Surgical History: Reports: None Cardiovascular Surgical History: Reports: None Respiratory Surgical History: Reports: None GI Surgical History: Reports: Cholecystectomy Female Surgical History: Reports: Tubal Ligation Endocrine Surgical History: Reports: None Neurological Surgical History: Reports: None Musculoskeletal Surgical History: Reports: None Oncologic Surgical History: Reports: None - SUBSTANCE USE Tobacco Use Status *Q: Current Every Day Tobacco User Tobacco Use Within Last Twelve Months: Cigarettes Recreational Drug Use History: No - HOME MEDS Home Medications: Home Meds DULoxetine HCl [Cymbalta] 60 mg PO BEDTIME 04/23/16 [History] amLODIPine [Norvasc] 5 mg PO BEDTIME 04/23/16 [History] Lurasidone HCl [Latuda] 40 mg PO BEDTIME 11/09/17 [History] Rosuvastatin Calcium 10 mg PO BEDTIME 10/11/21 [History] buPROPion HCL [Wellbutrin Xl] 150 mg PO BEDTIME 10/11/21 [History] metFORMIN HCl [Metformin HCl ER] 2,000 mg PO BEDTIME 10/11/21 [History] - CURRENT (IN HOUSE) MEDS Current Meds: Current Medications Lactated Ringer's (Ringers, Lactated) 1,000 mls @ 125 mls/hr IV ASDIRECTED IKER Last Admin: 10/19/21 09:27 Dose: 125 mls/hr Documented by: Sodium Chloride (Sodium Chloride 0.9% 10 Ml Syringe) 10 ml FLUSH ASDIRECTED PRN PRN Reason: Keep Vein Open Sodium Chloride (Sodium Chloride 0.9% 2.5 Ml Syringe) 2.5 ml FLUSH ASDIRECTED PRN PRN Reason: Keep Vein Open Sodium Chloride (Sodium Chloride 0.9% 10 Ml Syringe) 10 ml FLUSH ASDIRECTED PRN PRN Reason: Keep Vein Open Sodium Chloride (Sodium Chloride 0.9% 2.5 Ml Syringe) 2.5 ml FLUSH ASDIRECTED PRN PRN Reason: Keep Vein Open Sodium Chloride (Sodium Chloride 0.9% 20 Ml Sdv) 10 ml IV ASDIRECTED PRN PRN Reason: IV Use
[2021-10-19] MEDS ORDERED: Propofol 200 MG/20 ML SDV ONE ×2 (11:13→12:05)
[2021-10-19] MEDS ORDERED: fentaNYL 100 MCG/2 ML SDV ONE (12:00)
--- NOTE | 2021-10-19 12:53 | PCM.POSTAN ---
POST ANESTHESIA ASSESSMENT - MENTAL STATUS Mental Status: Alert, Oriented - VITAL SIGNS Vital Signs: Last Vital Signs Temp 96.1 F L 10/19/21 09:22 Pulse 102 H 10/19/21 09:22 Resp 14 10/19/21 09:22 BP 160/99 H 10/19/21 09:22 Pulse Ox 95 10/19/21 09:22 - RESPIRATORY Respiratory Status: Respiratory Rate WNL, Airway Patent, O2 Saturation Stable - CARDIOVASCULAR CV Status: Pulse Rate WNL, Blood Pressure Stable - GASTROINTESTINAL GI Status: No Symptoms - POST OP HYDRATION Hydration Status: Adequate & Stable
--- NOTE | 2021-10-19 12:53 | PCM48HPAN ---
Post Anesthesia Note - EVALUATION WITHIN 48HRS OF ANESTHETIC Vital Signs in Normal Range: Yes Patient Participated in Evaluation: Yes Respiratory Function Stable: Yes Airway Patent: Yes Cardiovascular Function Stable: Yes Hydration Status Stable: Yes Pain Control Satisfactory: Yes Nausea and Vomiting Control Satisfactory: Yes Mental Status Recovered: Yes Vital Signs: Last Vital Signs Temp 96.1 F L 10/19/21 09:22 Pulse 102 H 10/19/21 09:22 Resp 14 10/19/21 09:22 BP 160/99 H 10/19/21 09:22 Pulse Ox 95 10/19/21 09:22
[2021-10-19 13:22] VITALS: BP 130/76; PULSE 86
--- NOTE | 2021-10-19 14:14 | PCM.OPNOTE ---
- General Post-Op/Procedure Note Date of Surgery/Procedure: 10/19/21 Operative Procedure(s): Screening colonoscopy Findings: Normal colonoscopy Pre Op Diagnosis: screening colonoscopy Post-Op Diagnosis: normal colonoscopy Anesthesia Technique: MAC Primary Surgeon: Melonie Dunlap Condition: Good
--- NOTE | 2021-10-20 18:03 | OR ---
SURGEON: MELONIE DUNLAP MD DATE OF PROCEDURE: 10/19/2021 PREOPERATIVE DIAGNOSIS: Family history of colon cancer. POSTOPERATIVE DIAGNOSIS: Family history of colon cancer. PROCEDURE PERFORMED: Screening colonoscopy. PRIMARY SURGEON: Melonie Dunlap MD ANESTHESIA: MAC. INSTRUMENT USED: Olympus colonoscope. EXTENT OF EXAM: To the cecum. PREPARATION: Good. LIMITATIONS: None. INDICATIONS FOR EXAMINATION: Patient is a 65-year-old female who presents for a first-time colonoscopy. Her sister was diagnosed with colon cancer. The patient and I discussed the procedure, expected perioperative course, and the risks. She verbalized understanding and wishes to proceed. PROCEDURE IN DETAIL: Patient was brought in to the endoscopy suite and placed in a left lateral decubitus position. A time-out was completed verifying the patient's name, age, date of , allergies, and procedure to be performed. Monitored anesthesia care was induced and continuous oxygen was provided via nasal cannula throughout the procedure. After adequate sedation was achieved, a digital rectal exam was performed. This exam was within normal limits. A well-lubricated colonoscope was inserted into the rectum and advanced under direct visualization to the level of the cecum. The cecum was identified by both visual and anatomic landmarks. A photograph was taken of the cecal cap, however, I was unable to retroflex the scope within the cecum due to looping of the scope more proximally. The scope was then fully withdrawn while examining the color, texture, anatomy, and integrity of the mucosa from the cecum to the anal canal. The findings were consistent with normal colonic mucosa. The scope was then brought into the rectum and retroflexed to allow visualization of the anal canal opening. This appeared normal and a photograph was taken. The scope was then straightened out and fully withdrawn. The cecum to anus time was 6 minutes. The patient tolerated the procedure well and was transferred to the PACU in stable condition. ENDOSCOPIC DIAGNOSIS: Family history of colon cancer. RECOMMENDATION: Follow up in clinic in five years. BARRY VIDES /[id number]
== END 2021-10-19 13:31 | disposition home or self-care (01) ==
LOC: MW.SDS 09:07
PROVIDERS: ATTEND Surgery
DX: Z12.11 Encounter for screening for malignant neoplasm of colon (principal); I10 Essential (primary) hypertension; E78.5 Hyperlipidemia, unspecified; Z80.0 Family history of malignant neoplasm of digestive organs; Z79.899 Other long term (current) drug therapy; Z90.49 Acquired absence of other specified parts of digestive tract; Z98.890 Other specified postprocedural states
CPT/HCPCS: 45378; 82947; J2704; J3010; J7120; 00812

== ENCOUNTER 2025-04-01 14:23 | Emergency (ER) | payer MEDICARE, MEDICAID ==
[2025-04-01 14:34] VITALS: BP 147/97; PULSE 103
[2025-04-01] MEDS ORDERED: Cyclobenzaprine 10 MG Tab ONE (14:53)
[2025-04-01] MEDS ORDERED: Ibuprofen 600 MG Tab ONE (14:53)
[2025-04-01] MEDS: Ibuprofen 600 MG Tab PO ONE (14:54)
[2025-04-01] MEDS: Cyclobenzaprine 10 MG Tab PO ONE (14:54)
[2025-04-01 15:00] LABS: APPEARANCE,URINE HAZY; BILIRUBIN,URINE NEGATIVE (NEGATIVE); COLOR,URINE YELLOW; GLUCOSE,URINE NEGATIVE (NEGATIVE); KETONES,URINE NEGATIVE (NEGATIVE); LEUKOCYTE ESTERASE,URINE TRACE (NEGATIVE); NITRITE,URINE POSITIVE (NEGATIVE); OCCULT BLOOD,URINE NEGATIVE (NEGATIVE); PROTEIN,URINE NEGATIVE (NEGATIVE); UROBILINOGEN,URINE 0.2 EU/dL (<2.0)
[2025-04-01 15:06] LABS: RBC,URINE 0-2 (0-2/HPF)
[2025-04-01 15:07] LABS: BACTERIA,URINE 4+ (NEGATIVE); EPITHELIAL CELLS,URINE FEW (NONE-FEW)
== END 2025-04-01 15:30 | disposition home or self-care (01) ==
LOC: MW.ED 14:23
DX: N39.0 Urinary tract infection, site not specified (principal); M54.50 Low back pain, unspecified; E78.00 Pure hypercholesterolemia, unspecified; I10 Essential (primary) hypertension; E11.9 Type 2 diabetes mellitus without complications; Z91.048 Other nonmedicinal substance allergy status; Z91.018 Allergy to other foods; Z79.84 Long term (current) use of oral hypoglycemic drugs; Z79.899 Other long term (current) drug therapy; Z75.3 Unavailability and inaccessibility of health-care facilities
CPT/HCPCS: 81001; 87086; 87088; 87186; 99283; A9270